=== PATIENT | female | born 1960 | race Caucasian/White ===

== ENCOUNTER 2017-02-06 10:24 | Inpatient (IN) ==
[2017-02-06 11:25] LABS: Basophils # 0.1 K/mcL (0.0-0.2); Eosinophils # 0.1 K/mcL (0.0-0.6); Eosinophils % 1.4 %; Hematocrit 40.4 % (35.3-44.9); Hemoglobin 13.6 g/dL (11.5-15.4); Immature Granulocytes % 0.4 % (0-4); Lymphocytes # 1.3 K/mcL (0.6-4.6); Lymphocytes % 27.1 %; Mean Corpuscular HGB Conc 33.7 g/dL (31.6-35.5); Mean Corpuscular Hemoglobin 28.1 pg (28.0-33.3); Mean Corpuscular Volume 83.5 fL (83.0-100.0); Mean Platelet Volume 11.4 fL (9.4-12.4); Monocytes # 0.3 K/mcL (0.0-1.3); Monocytes % 6.3 %; Neutrophils # 3.1 K/mcL (1.6-8.9); Platelet Count 152 K/mcL (140-400); Red Blood Count 4.84 M/mcL (3.82-4.97); Red Cell Distribution Width 14.1 % (11.5-14.5); Segmented Neutrophils % 63.8 %
[2017-02-06 11:30] LABS: INR 1.2; Prothrombin Time 13.3 Seconds (9.4-12.1)
[2017-02-06 11:32] LABS: Activated Partial Thrombo Time 32.6 Seconds (26.0-36.0)
[2017-02-06 11:36] LABS: BUN/Creatinine Ratio 20 (6-26); Blood Urea Nitrogen 20 mg/dL (7-20); Carbon Dioxide 22 mEq/L (19-29); Chloride 109 mEq/L (98-109); Glucose 95 mg/dL (70-99); Osmolality,Calculated 290 (280-300); Potassium 3.6 mEq/L (3.5-4.5); Sodium 139 mEq/L (136-145); eGFR For African Americans > 60 (> 60); eGFR For Non-African Americans 58 (> 60)
--- NOTE | 2017-02-06 12:48 | Emergency Department Note ---
Disposition Clinical Impression: CVA (cerebral vascular accident) Qualifiers: CVA mechanism: unspecified Qualified Code(s): I63.9 - Cerebral infarction, unspecified Disposition: Admitted As Inpatient Condition: Good Neuro HPI - General Chief Complaint: ED Headache Stated Complaint: Hypertension/headache/numbness to left hand Time Seen by Provider: 02/06/17 10:31 Source: patient, family Limitations: no limitations Nursing Notes Reviewed: Yes Vital Signs Reviewed: Yes - History of Present Illness HPI Narrative: He is a 56-year-old female with a history of smoking and hypertension is here for neurologic symptoms. 2 days ago she was seen at a local ER was diagnosed with hypertensive encephalopathy and discharged home. At that time she was having issues with gait disturbances. She is also having issues with coordination of her left hand. She was placed on aspirin and lisinopril and discharged home to follow-up with neurology. She will call the neurology office today and they recommended coming back to the ER for reevaluation. Overall the patient states she feels better she still having some coordination issues with her left arm but states her balance and gait is back to baseline. Her did notice a small deficit left sided facial droop. Symptom Onset Unknown: Yes (greater than 48 hours ago) Timing confirmed by: spouse Location: left face, left arm Symptoms Improving: Yes Improves with: time On Anticoagulants: No Associated symptoms: Reports: denies other symptoms - Related Data Home Medications: Previous Rx's Medication Instructions Recorded Lisinopril [Zestril] 20 mg PO DAILY #30 tablet 02/04/17 Sulfamethoxazole/Trimeth DS 1 each PO BID #14 tablet 02/04/17 [Bactrim DS] Allergies/Adverse Reactions: Allergies Allergy/AdvReac Type Severity Reaction Status Date / Time No Known Allergies Allergy Verified 02/04/17 14:04 All systems ED: reviewed and negative except as stated. 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 - Social History Smoking Status: Current every day smoker Smokeless Tobacco Status: No Alcohol use: Reports: occasionally Drug use: Reports: none Physical Exam - General Limitations: no limitations General appearance: alert, in no apparent distress - Head Head exam: atraumatic, normocephalic, normal inspection - Eye Eye exam: Present: normal appearance, PERRL, EOMI - Neck Neck exam: Present: normal inspection, full ROM, trachea midline - Chest Chest inspection: Present: normal inspection, symmetric chest wall rise - Respiratory Respiratory exam: Present: normal lung sounds bilaterally - Cardiovascular Cardiovascular exam: Present: regular rate, normal rhythm, normal heart sounds - Abdominal Exam Abdominal exam: Present: soft, Non-Tender. Absent: tenderness, distention, guarding, rebound, rigidity - Expanded Lower Extremity Exam Gait: observed and normal - Back Exam Back exam: Present: normal inspection, full ROM. Absent: tenderness - Neurological Exam Neurological exam: Present: alert, oriented X3 - Expanded Neurological Exam Patient oriented to: Present: person, place, time Cranial nerves: facial palsy (VII): Abnormal Left (Mild) Cerebellar function: finger to nose: Abnormal Left (Mild) Cerebellar function: normal gait Motor strength - LUE: 5/5 Motor strength - RUE: 5/5 Motor strength - LLE: 5/5 Motor strength - RLE: 5/5 Course - Consultations Consultation #1: Dr. Mullen will see in hospital Time: 13:29 Vital Signs Temperature 97.7 F 02/06/17 10:26 Pulse Rate 81 02/06/17 10:26 Respiratory Rate 18 02/06/17 10:26 Blood Pressure 200/83 02/06/17 10:26 O2 Sat by Pulse Oximetry 97 02/06/17 10:26 Temperature 97.7 F 02/06/17 10:26 Pulse Rate 81 02/06/17 10:26 Respiratory Rate 18 02/06/17 10:26 Blood Pressure 200/83 02/06/17 10:26 O2 Sat by Pulse Oximetry 97 02/06/17 10:26 Oxygen Delivery Oxygen Delivery Room Air Neuro Symptoms/Deficit - Differential Diagnosis Likely: cerebrovascular accident, subarachnoid hemorrhage, transient cerebral ischemia, multiple sclerosis, peripheral neuropathy, convulsions - Medical Records Medical records reviewed: Yes I reviewed the patient's medical records. - Lab Data Result diagrams: 02/06/17 11:15 02/06/17 11:15 Lab Results 02/06/17 02/06/17 02/06/17 Range/Units 11:15 11:15 11:15 WBC 4.9 (4.3-11.1) K/mcL RBC 4.84 (3.82-4.97) M/mcL Hgb 13.6 (11.5-15.4) g/dL Hct 40.4 (35.3-44.9) % MCV 83.5 (83.0-100.0) fL MCH 28.1 (28.0-33.3) pg MCHC 33.7 (31.6-35.5) g/dL RDW 14.1 (11.5-14.5) % Plt Count 152 (140-400) K/mcL MPV 11.4 (9.4-12.4) fL Immature Gran % 0.4 (0-4) % Seg Neutrophils % 63.8 % Lymphocytes % 27.1 % Monocytes % 6.3 % Eosinophils % 1.4 % Basophils % 1.0 % Neutrophils # 3.1 (1.6-8.9) K/mcL Lymphocytes # 1.3 (0.6-4.6) K/mcL Monocytes # 0.3 (0.0-1.3) K/mcL Eosinophils # 0.1 (0.0-0.6) K/mcL Basophils # 0.1 (0.0-0.2) K/mcL PT 13.3 H (9.4-12.1) Seconds INR 1.2 APTT 32.6 (26.0-36.0) Seconds Sodium 139 (136-145) mEq/L Potassium 3.6 (3.5-4.5) mEq/L Chloride 109 (98-109) mEq/L Carbon Dioxide 22 (19-29) mEq/L BUN 20 (7-20) mg/dL Creatinine 0.98 (0.57-1.11) mg/dL Est GFR ( Amer) > 60 (> 60) Est GFR (Non-Af Amer) 58 L (> 60) BUN/Creatinine Ratio 20 (6-26) Glucose 95 (70-99) mg/dL Calculated Osmolality 290 (280-300) Calcium 9.0 (8.6-10.8) mg/dL Troponin I (0-0.03) ng/mL 02/06/17 Range/Units 11:15 WBC (4.3-11.1) K/mcL RBC (3.82-4.97) M/mcL Hgb (11.5-15.4) g/dL Hct (35.3-44.9) % MCV (83.0-100.0) fL MCH (28.0-33.3) pg MCHC (31.6-35.5) g/dL RDW (11.5-14.5) % Plt Count (140-400) K/mcL MPV (9.4-12.4) fL Immature Gran % (0-4) % Seg Neutrophils % % Lymphocytes % % Monocytes % % Eosinophils % % Basophils % % Neutrophils # (1.6-8.9) K/mcL Lymphocytes # (0.6-4.6) K/mcL Monocytes # (0.0-1.3) K/mcL Eosinophils # (0.0-0.6) K/mcL Basophils # (0.0-0.2) K/mcL PT (9.4-12.1) Seconds INR APTT (26.0-36.0) Seconds Sodium (136-145) mEq/L Potassium (3.5-4.5) mEq/L Chloride (98-109) mEq/L Carbon Dioxide (19-29) mEq/L BUN (7-20) mg/dL Creatinine (0.57-1.11) mg/dL Est GFR ( Amer) (> 60) Est GFR (Non-Af Amer) (> 60) BUN/Creatinine Ratio (6-26) Glucose (70-99) mg/dL Calculated Osmolality (280-300) Calcium (8.6-10.8) mg/dL Troponin I 0.03 (0-0.03) ng/mL - Radiology Data Radiology results reviewed: Yes I reviewed the patient's radiology results. - EKG Data EKG attestation: Yes I reviewed and interpreted this EKG. EKG shows normal: sinus rhythm Rate: normal [place]/QRS: normal Interpretation: nonspecific ST-T wave changes TPA Checklist - Eligibilty for IV tPA 1. LKW equal to or less than 4.5 hours be before treatment: No - LKW: 3-4.5 hrs Add. Contraindications Patient/family understanding: The patient/family members have been counseled and understood the risk, benefit , and alternatives of treatment. symptom onset greater than 48 hours and improving Critical Care Time Critical Care Time: Yes Total Critical Care Time: 35 Attestation: Critical care performed: Time is exclusive of separately billable procedures. Time includes: direct patient care, patient reassessment, coordination of patient care, interpretation of data (laboratory data, radiology data, and respiratory data), review of patient's medical records, medical consultation and documentation of patient care. Procedures included in critical care time: Procedures excluded from critical care time:
[2017-02-06] MEDS ORDERED: Aspirin 81 MG TAB.CHEW PO ONE (13:29)
--- NOTE | 2017-02-06 14:21 | Internal Med History&Physical ---
Date of Encounter: 02/06/17 Time of Encounter: 14:14 Assessment and Plan (1) Acute CVA (cerebrovascular accident) Current visit: Yes Status: Acute Acute right CVA affecting the right basal ganglia. Patient has left-sided weakness motor power 4/5. Onset of symptoms was probably Monday 2 days ago. She is out the window. Start aspirin and Statin. NIH stroke scale is 2. Follow NIH stroke scale every 4 hours. Patient systolic blood pressure is in the 200. Hold blood pressure medicine and allow for permissive hypertension. Check echocardiogram carotid doppler. she is in normal sinus rhythm but will keep on telemetry. Physical therapy, high school social studies teacher, occupational therapy, and speech therapy to evaluate the patient. Will give heparin and famotidine for DVT and peptic ulcer disease prophylaxis. I have counseled on smoke cessation. She is full code. Inpatient admission (2) Recent urinary tract infection Current visit: Yes Status: Acute Patient had recent questionable urinary tract infection and was treated with 3 days of Bactrim starting on February 04. Urine culture performed then shows no broth. She is afebrile without leukocytosis. She already completed 3 days of antibiotics so I will discontinue it for now and recheck urine analysis Internal Medicine - H&P: HPI Chief complaint: left arm weakness History of present illness: Ms. Chambers is a 56 year old right-handed female with history of peripheral vascular disease, COPD not on home oxygen, a chronic smoker who was recently diagnosed hypertension when she presented to the emergency room 2 days ago to an outside facility with complains of gait unsteadiness and she was discharged home on lisinopril 20 mg daily. She presented emergency room today for further evaluation. Since Monday patient notice slight weakness in the left upper extremity where she was dropping things from her left hand. She has also noticed some tingling sensation in the left hand and leg. She denied any speech slipperiness facial assymmetry. She remains with severe hypertension. MRI performed at the emergency room showed right acute basal ganglia infarct. Past Med Surg Social Fam HX - Past Medical History Medical history: COPD, hypertension, kidney stones Psychiatric history: no psych history - Social History Smoking Status: Current every day smoker Smokeless Tobacco Status: No Alcohol use: occasionally Drug use: none Internal Medicine - H&P: Meds Lisinopril [Zestril] 20 mg PO DAILY #30 tablet 02/04/17 [Rx] Sulfamethoxazole/Trimeth DS [Bactrim DS] 1 each PO BID #14 tablet 02/04/17 [Rx] Aspirin [Lo-Dose Aspirin EC] 81 mg PO DAILY 02/06/17 [History] Allergies No Known Allergies Allergy (Verified 02/04/17 14:04) All Systems PM: A 10-system review of systems was performed and is negative for pertinent findings except as documented above in the HPI. Review of systems: 10 point review systems is negative except for HPI - Constitutional Vitals: Temp Pulse Resp BP Pulse Ox 97.7 F 81 18 200/83 97 02/06/17 10:26 02/06/17 10:26 02/06/17 10:26 02/06/17 10:26 02/06/17 10:26 Exam: Gen.: patient is alert oriented times 3 kn and distress. Cardiac: normal S1 S2 no additional sounds remembers chest: clear to auscultation abdomen: soft nontender nondistended lower extremity lax calf muscles neuro: left upper extremity weakness 4/5 left lower extremity weakness 4/5 Internal Med - H&P Results - Labs CBC & Chem 7: 02/06/17 11:15 02/06/17 11:15
--- NOTE | 2017-02-06 15:45 | Electrocardiograph Report ---
[place] [id number] Test Date: 2017-02-06 Pat Name: An Chambers Department: 102 Room: 2NE27 Gender: F Wireless Sales Associate: Ida : 1960 Requested By: Sebastian Escobedo Order Number: [id number] Reading MD: Dianne Loera Measurements Intervals [place] Rate: 66 P: 24 MA: 158 QRS: 88 QRSD: 80 T: 78 QT: 407 QTc: 420 Interpretive Statements SINUS RHYTHM NONSPECIFIC ST ABNORMALITIES Electronically Signed On 02-06-2017 15:43:15 EDT by Dianne Loera
[2017-02-06 16:40] LABS: Bilirubin,Urine Negative (Negative); Blood,Urine Negative (Negative); Clarity,Urine Clear (Clear); Color,Urine Yellow (Yellow); Glucose,Urine (UA) Normal (Normal); Ketones,Urine Negative (Negative); Leukocyte Esterase,Urine Moderate (Negative); Nitrite,Urine Negative (Negative); Protein,Urine Negative (Neg-Trace); Urobilinogen,Urine Normal (Normal)
[2017-02-06 16:44] LABS: Bacteria,Urine Few per hpf (None-Few); Hyaline Casts,Urine None Seen per lpf (None-Few); RBC,Urine 0-3 per hpf (0-3); Squamous Epithelial Cell,Urine Many per lpf (None-Few)
[2017-02-06] MEDS: Nicotine 21 MG PATCH.TD24 TD SCH (16:44)
[2017-02-06] MEDS: *HR* Heparin 5,000 UNIT/ML VIAL SQ SCH (16:45)
--- NOTE | 2017-02-06 17:11 | Neurology - Consult Note ---
Date of Encounter: 02/06/17 Time of Encounter: 17:03 Assessment and Plan (1) CVA (cerebral vascular accident) Current Visit: Yes Status: Acute Likely secondary to small vessel lacunar infarct secondary to HTN/hypertensive emergency. Will do stroke work up including echocardiography and carotid artery duplex study. Continue her on Aspirin 325mg daily for secondary stroke prevention. Continue Statin therapy in the from of atorvastatin. PT/OT evaluation. Qualifiers: CVA mechanism: occlusion Precerebral and cerebral artery: unspecified cerebral artery Qualified Code(s): I63.50 - Cerebral infarction due to unspecified occlusion or stenosis of unspecified cerebral artery History of Present Illness Chief complaint: left sided weakness, and balance problems HPI: Ms. Chambers is a 56 year old female with PMH significant for hypertension, COPD, bronchitis who developed acute onset of balance difficulty and left sided weakness about two days ago. She developed acute onset of balance difficulty and left sided weakness Went to ER at outside hospital and was found to have elevated BP at 200/102. Was given lisinopril and Aspirin and send home. Left sided weakness persisted and she went to ER here at [place]. MRI of brain showed: MR/MR head/brain wo con IMPRESSION: Acute infarction in the right basal ganglia. Question of a tiny subacute infarction in the high convexity posteromedial left frontal lobe. Scattered old infarctions as described above, progressed since October 01, 2008. 1 cm partially calcified meningioma along the anteromedial right frontal convexity, mildly increased in size since October 01, 2008 when it measured 7.4 mm. No evidence of edema in the adjacent brain parenchyma. Mild parenchymal volume loss. Mild chronic microvascular disease. I reviewed the images personally and the reported questionable subacute infarction in the high connexity posteromedial left frontal lobe does not associate with ADC map abnormality. Patient is doing better now. Still has slight left sided paresis but lot improved. Past Med Surg Social Fam HX - Past Medical History Medical history: COPD, hypertension, kidney stones Psychiatric history: no psych history - Social History Smoking Status: Current every day smoker Smokeless Tobacco Status: No Alcohol use: occasionally Drug use: none Medications and Allergies Lisinopril [Zestril] 20 mg PO DAILY #30 tablet 02/04/17 [Rx] Sulfamethoxazole/Trimeth DS [Bactrim DS] 1 each PO BID #14 tablet 02/04/17 [Rx] Aspirin [Lo-Dose Aspirin EC] 81 mg PO DAILY 02/06/17 [History] Allergies No Known Allergies Allergy (Verified 02/04/17 14:04) All Systems: A 10-system review of systems was performed and is negative for pertinent findings except as documented above in the HPI. Physical Examination - Vital Signs Vital Signs: Initial Vital Signs Temp Pulse Resp BP Pulse Ox 97.7 F 81 18 200/83 97 02/06/17 10:02/06/17 10:02/06/17 10:02/06/17 10:02/06/17 10:26 - Constitutional General appearance: comfortable - Neurologic Sensorimotor examination: other (slight reduced sensation to the left hand) Detailed motor examination: other (Mild left sided weakness noted) Motor examination - right side: 5/5: deltoids, biceps, triceps, wrist flexion, wrist extension, manager technical sales, hip flexors, tibialis Anterior, quadriceps, toe extension (EHL), plantarflexion Motor examination - left side: 4/5: deltoids, biceps, triceps, wrist flexion, wrist extension, hip flexors, manager technical sales, quadriceps, tibialis Anterior, toe extension (EHL), plantarflexion Detailed sensory examination: other (Left sided paresthesia noted) Posture: other (None) Reflex and gait examination: other Reflexes: Biceps: 2+, Triceps: 2+, Brachioradialis: 2+, Patella: 2+, Achilles: 2 + Mental Status Examination: awake, alert, oriented to person, oriented to place, oriented to time, follows commands appropriately, answers questions appropriately, no agnosia, no aphasia, no aproxia Cranial nerve examination: PERRL, EOMI, visual arreaga intact, corneal reflexes brisk symmetrically, sensory to face intact, mastication intact, no facial asymmetry is present, no dysarthria, hearing is intact symmetrically, soft palate elevates bilaterally upon phonation, gag reflex intact, flexes SCM and trapezius muscles symmetrically with full power, tongue protrudes midline, no atrophy or facial fasiculations present Results - Laboratory Findings CBC and BMP: 02/06/17 11:15 02/06/17 11:15 Abnormal lab findings: Abnormal lab results PT 13.3 Seconds (9.4-12.1) H 02/06/17 11:15 Est GFR (Non-Af Amer) 58 (> 60) L 02/06/17 11:15 Ur Leukocyte Esterase Moderate (Negative) H 02/06/17 16:20 Urine Microscopic WBC 5-15 per hpf (0-3) H 02/06/17 16:20 Ur Squamous Epith Cells Many per lpf (None-Few) H 02/06/17 16:20 Consult Discharge Plan - Plan
[2017-02-07 03:59] LABS: Basophils # 0.1 K/mcL (0.0-0.2); Basophils % 1.3 %; Eosinophils # 0.1 K/mcL (0.0-0.6); Hematocrit 36.9 % (35.3-44.9); Hemoglobin 12.1 g/dL (11.5-15.4); Immature Granulocytes % 0.3 % (0-4); Lymphocytes # 1.6 K/mcL (0.6-4.6); Lymphocytes % 40.1 %; Mean Corpuscular HGB Conc 32.8 g/dL (31.6-35.5); Mean Corpuscular Hemoglobin 27.3 pg (28.0-33.3); Mean Corpuscular Volume 83.3 fL (83.0-100.0); Mean Platelet Volume 11.3 fL (9.4-12.4); Monocytes # 0.3 K/mcL (0.0-1.3); Monocytes % 8.6 %; Neutrophils # 1.8 K/mcL (1.6-8.9); Platelet Count 149 K/mcL (140-400); Red Blood Count 4.43 M/mcL (3.82-4.97); Red Cell Distribution Width 14.1 % (11.5-14.5); Segmented Neutrophils % 46.7 %
[2017-02-07] MEDS: *HR* Heparin 5,000 UNIT/ML VIAL SQ SCH (06:34)
[2017-02-07 07:17] LABS: BUN/Creatinine Ratio 22 (6-26); Blood Urea Nitrogen 22 mg/dL (7-20); Calcium 8.6 mg/dL (8.6-10.8); Carbon Dioxide 21 mEq/L (19-29); Chloride 110 mEq/L (98-109); Glucose 99 mg/dL (70-99); Magnesium 1.7 mg/dL (1.6-2.6); Osmolality,Calculated 291 (280-300); Potassium 3.8 mEq/L (3.5-4.5); Sodium 139 mEq/L (136-145); eGFR For African Americans > 60 (> 60); eGFR For Non-African Americans 58 (> 60)
[2017-02-07] MEDS: Nicotine 21 MG PATCH.TD24 TD SCH (08:28)
--- NOTE | 2017-02-07 08:45 | Neurology Progress Note ---
Date of Encounter: 02/07/17 Time of Encounter: 08:10 Assessment and Plan (1) CVA (cerebral vascular accident) Current Visit: Yes Status: Acute Acute right basal ganglia infarct. Continue ASA 325mg daily for secondary stroke prevention. Continue Atorvastatin. Physical therapy recommendation for outpatient rehabilitation. Awaiting final results of carotid duplex and echocardiogram. Smoking cessation recommended. Followup with primary care provider for monitoring and control of blood pressure. Qualifiers: CVA mechanism: occlusion Precerebral and cerebral artery: unspecified cerebral artery Qualified Code(s): I63.50 - Cerebral infarction due to unspecified occlusion or stenosis of unspecified cerebral artery Subjective Principal diagnosis: acute right basal infarct Interval history: The patient was seen and examined. She is resting comfortably in bed. The patient is undergoing workup for stroke. Thus far preliminary read of the cartoid duplex ultrasound is demonstrating no abnormalities on the right, but there are findings of left proximal, mid, and distal ICA occlusion. No official read is back. Still awaiting results of echocardiogram. 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 She notes that her parasthesias and decreased sensation in her left hand have resolved. She was seen by PT/OT/ and speech therapy. She was recommended to have outpatient rehabilitation. Objective - Constitutional Vitals: Temp Pulse Resp BP Pulse Ox 98.3 F 78 15 144/83 96 02/07/17 08:29 02/07/17 08:29 02/07/17 08:29 02/07/17 08:29 02/07/17 08:29 General appearance: Present: A&O X 3 - Neurological Exam Motor Examination: Present: other (Mild left sided weakness noted) Motor examination - right side: 5/5: deltoids, biceps, triceps, wrist flexion, wrist extension, utility systems repairer operator, hip flexors, tibialis Anterior, quadriceps, toe extension (EHL), plantarflexion Motor examination - left side: 4/5: biceps, wrist flexion, wrist extension, hip flexors, utility systems repairer operator, quadriceps, tibialis Anterior, toe extension (EHL), plantarflexion, 5/5: deltoids, triceps Sensation intact: Present: intact Reflexes: Biceps: 2+, Triceps: 2+, Brachioradialis: 2+, Patella: 2+, Achilles: 2 + Mental Status Examination: Present: awake, alert, oriented to person, oriented to place, oriented to time, follows commands appropriately, answers questions appropriately, no agnosia, no aphasia, no aproxia Cranial nerve examination: Present: PERRL, EOMI, visual arreaga intact, corneal reflexes brisk symmetrically, sensory to face intact, mastication intact, no facial asymmetry is present, no dysarthria, hearing is intact symmetrically, soft palate elevates bilaterally upon phonation, flexes SCM and trapezius muscles symmetrically with full power, tongue protrudes midline, no atrophy or facial fasiculations present - VTE Documentation of Mechanical Device: Intermittent pneumatic compression device Results - Laboratory Findings CBC and BMP: 02/07/17 03:28 02/07/17 05:48 Abnormal lab findings: Abnormal lab results WBC 3.9 K/mcL (4.3-11.1) L 02/07/17 03:28 MCH 27.3 pg (28.0-33.3) L 02/07/17 03:28 PT 13.3 Seconds (9.4-12.1) H 02/06/17 11:15 Chloride 110 mEq/L (98-109) H 02/07/17 05:48 BUN 22 mg/dL (7-20) H 02/07/17 05:48 Est GFR (Non-Af Amer) 58 (> 60) L 02/07/17 05:48 Ur Leukocyte Esterase Moderate (Negative) H 02/06/17 16:20 Urine Microscopic WBC 5-15 per hpf (0-3) H 02/06/17 16:20 Ur Squamous Epith Cells Many per lpf (None-Few) H 02/06/17 16:20 Consult Discharge Plan - Plan Referrals: NO,PCP [Primary Care Provider] -
[2017-02-07] MEDS ORDERED: Famotidine 20 MG TABLET PO SCH (09:00)
[2017-02-07] MEDS ORDERED: Aspirin 81 MG TAB.CHEW PO SCH (09:00)
[2017-02-07 09:06] LABS: Cholesterol 211 mg/dL (< 200); HDL Cholesterol 35 mg/dL (40-59); LDL Cholesterol,Calculated 154 mg/dL (0-99); Triglycerides 110 mg/dL (< 150)
--- NOTE | 2017-02-07 09:10 | ECHO - Doppler Report ---
Echo with Saline Contrast Name: An Chambers Date of Study: 02/06/2017 Date: 1960 Ht: 63.0 in Medical Record#: [id number] Age: 56 Wt: 113.0 lb Gender: Female BSA: 1.52 Order #: [id number] Location: [facility] Room #: 2NE27 Reading Physician: Dianne Loera DO Nurse Practical: Alicia Damian Ordering Physician: Torin Singh MD Primary Physician: None Indications: CVA Impressions: LVEF 60%. Normal left ventricular size and systolic function. There is evidence of mild diastolic dysfunction of the left ventricle. Normal right ventricular size and function. No significant valvular dysfunction. No pulmonary hypertension. No PFO with saline contrast. Left Ventricular Wall Motion: Rest Echo Findings All wall segments showed normal motion. Findings: Study Quality * Technically adequate exam. ECG Findings * Normal sinus rhythm. Left Ventricle * LVEF 60%. * Normal LV chamber size, wall thickness and function. * Mild left ventricular diastolic dysfunction. Left Atrium * Normal left atrial size. Aortic Valve * No aortic regurgitation. * Trileaflet aortic valve. * Normal aortic valve structure. * No aortic stenosis. Mitral Valve * Normal mitral valve structure. * No mitral regurgitation. * No mitral stenosis. Tricuspid Valve * Tricuspid valve not well visualized. * No tricuspid regurgitation. * Estimated RA pressure is 3 mmHg. Pulmonic Valve * Pulmonic valve is not well visualized. * No pulmonic stenosis. * No pulmonic regurgitation. Pulmonary Artery * Pulmonary artery not well visualized. Right Ventricle * Normal right ventricular structure and function. Right Atrium * Normal right atrial size. Interatrial Septum * No evidence of PFO with agitated saline contrast. * No evidence of PFO by color Doppler. Pericardium * There is no pericardial effusion present. Aorta * Not well visualized. IVC * Normal IVC dimensions and inspiratory collapse. History Hypertension History of Smoking Years 40 Packs 1 Measurements: BP: 155/ 84 2D Normal Values RVIDd: 2.30 cm <2.7 cm IVSd: 1.00 cm 0.6 - 1.0 cm LVIDd: 4.10 cm 3.7 - 5.6 cm LVPWd: 1.00 cm 0.6 - 1.1 cm LVIDs: 3.00 cm 1.5 - 3.6 cm AO: 2.20 cm < 4.0 cm LA: 2.40 cm 2.0 - 4.0cm %FS: 26.80 cm >25 % LA volume: 29 Mitral Valve Peak E:.75 m/sec Peak A:.99 m/sec E/A Ratio:0.8 Peak E' Lat Alexi:7.31 cm/s Peak E' Med Alexi:5.36 cm/s E/E' Lat Ratio:10.3 E/E' Med Ratio:14 Updated by Dianne Loera on 02/07/2017 9:03:43 AM electronically signed on 02/07/2017 9:04:15 AM with status of Final Wall Motion [place]: 1=Normal, 2=Hypokinesis, 3=Akinesis, 4=Dyskinesis, 5=Aneurysmal, 6=Hyperkinetic, X=Not Visualized (Blank)=Missing
--- NOTE | 2017-02-07 10:26 | Discharge Summary ---
<DawitLiane dodge - Last Filed: 02/07/17 16:12> Date of Encounter: 02/07/17 Time of Encounter: 08:45 - Discharge Diagnosis (1) CVA (cerebral vascular accident) Priority: Primary Status: Acute Qualifiers: CVA mechanism: unspecified Qualified Code(s): I63.9 - Cerebral infarction, unspecified (2) Hypertension Priority: Primary Status: Chronic Qualifiers: Hypertension type: essential hypertension Qualified Code(s): I10 - Essential (primary) hypertension (3) Hyperlipidemia Priority: Secondary Status: Chronic Qualifiers: Hyperlipidemia type: unspecified Qualified Code(s): E78.5 - Hyperlipidemia , unspecified (4) Tobacco use Priority: Secondary Status: Chronic - Discharge Medications Prescriptions: Aspirin 325 mg PO DAILY #30 tablet Atorvastatin [Lipitor] 20 mg PO HS #60 tablet Home Medications: Lisinopril [Zestril] 20 mg PO DAILY #30 tablet 02/04/17 [Rx] Aspirin 325 mg PO DAILY #30 tablet 02/07/17 [Rx] Atorvastatin [Lipitor] 20 mg PO HS #60 tablet 02/07/17 [Rx] Allergies/Adverse Reactions: Allergies No Known Allergies Allergy (Verified 02/04/17 14:04) Procedures/tests Complete & Pending: Procedures Performed prior 72 hours Category Date Time Status EV carotid duplex imaging BI Routine Y 02/06/17 14:21 Completed EV echocardiogram Routine Y 02/06/17 14:21 Completed Date of admission: 02/06/17 14:11 Primary care physician: PCP NO Consults: [facility] Discharging clinician: Liane Pastor Anticipated date of discharge: 02/07/17 - Patient Status Disposition: Home, Self-Care Condition: Good Functional capacity at discharge: independent ambulation Overall status at discharge: patient is progressing back to baseline - Discharge Instructions Instructions: Aspirin (By mouth), Atorvastatin (By mouth), Ischemic Stroke (DC) , Ischemic Stroke (GEN), Chronic Hypertension (DC), Cigarette Smoking and Your Health, [employer] (GEN) Follow Up With: Marco Pantoja MD [Partnered Physician] - 02/09/17 1:30 pm Forms: ED Satisfaction Letter, Work/School Release Additional Instructions: Please take full dose aspirin and prescribed Lipitor to decrease your chance to develop another stroke. Please continue home blood pressure medication but also follow up with your primary care provider within a week after discharge regarding your recent stroke. Please work on smoking cessation and ask your primary care provider if you need extra assistance. Work excuse until 02/09/17. - Diet and Activity Activity: as per physical therapy, increase activity as tolerated Diet: low fat, low cholesterol, low salt diet Hospital course: Ms. Chambers is a 56 year old female with PMH of HTN, peripheral vascular disease, and COPD. Patient had acute onset of left upper extremity weakness and gait unsteadiness two days prior to admission. Patient initially went to an outside facility ED where she was found to have elevated blood pressure at 200/ 100 but sent home with aspirin and lisinopril. Patient's symptoms persisted and eventually came [facility]. Patient was noted to have BP as high as 200 /83 in ED. Brain MRI found acute infarct in the right basal ganglia. Patient was started on aspirin and Lipitor. Neurology thinks it's likely small vessel lacunar infarct secondary to HTN/hypertensive emergency and recommends to continue aspirin and statin. Patient's neurological symptoms improves since admission and almost completely resolved on 02/07. Echo on 02/06 found LVEF 60% with mild diastolic dysfunction but no significant valvular dysfunction nor PFO with saline contrast. Bilateral carotid duplex exam found left PROX ICA 60-79% stenosis, MID ICA 60-79% and DISTAL ICA 40-59% stenosis. Given it's different from the infarct side, further intervention is not urgently indicated at this time. PT/OT recommends outpatient rehab. Given patient remains hemodynamically stable and improves on her neurological symptoms, will discharge patient home with full dose aspirin and atorvastatin. Patient will need follow up with her PCP within a week regarding her recent stroke. - Time Spent with Patient Total time spent providing and/or coordinating discharge services: Greater than 30 minutes - Constitutional Vitals: Temp Pulse Resp BP Pulse Ox 98.3 F 78 15 144/83 96 02/07/17 09:00 02/07/17 09:00 02/07/17 09:00 02/07/17 09:00 02/07/17 09:00 General appearance: Present: cooperative, A&O X 3, no acute distress, answers questions appropriately - Head Head exam: Present: atraumatic, normocephalic - Eye Eye exam: Present: EOMI, PERRL, conjuntiva pink, sclera anicteric - Neck Neck exam general surgery: Present: supple, trachea midline. Absent: lymphadenopathy - Respiratory Respiratory exam: Present: CTAB. Absent: accessory muscle use, rales, rhonchi, wheezes - Cardiovascular Cardiovascular exam: Present: RRR, +S1, +S2. Absent: diastolic murmur, gallop, rubs, systolic murmur - GI/Abdominal GI/Abdominal exam: Present: normal bowel sounds, soft, no peritoneal signs. Absent: distended, tenderness - Extremities Exam Extremities exam: Present: warm, radial pulses palpable and symetrical. Absent : calf tenderness, cyanotic, pedal edema - Neurological Exam Neurological exam: Present: CN II-XII intact, oriented X3, no focal deficits, strengths equal and symetr throughout. Absent: pronater drift, facial droop, speech deficit - Skin Skin exam: Present: dry, intact, warm - VTE Documentation of Mechanical Device: Intermittent pneumatic compression device <Sonu Cantu - Last Filed: 02/07/17 16:39> Date of Encounter: 02/07/17 - Discharge Diagnosis (1) CVA (cerebral vascular accident) Priority: Primary Status: Acute Qualifiers: CVA mechanism: thrombosis Precerebral and cerebral artery: middle cerebral artery Laterality of affected vessel: right Qualified Code(s): I63.311 - Cerebral infarction due to thrombosis of right middle cerebral artery (2) Hypertension Priority: Primary Status: Chronic Qualifiers: Hypertension type: essential hypertension Qualified Code(s): I10 - Essential (primary) hypertension (3) Tobacco use Status: Chronic (4) Hyperlipidemia Status: Chronic Qualifiers: Hyperlipidemia type: unspecified Qualified Code(s): E78.5 - Hyperlipidemia , unspecified Procedures/tests Complete & Pending: Procedures Performed prior 72 hours Category Date Time Status EV carotid duplex imaging BI Routine Y 02/06/17 14:21 Completed EV echocardiogram Routine Y 02/06/17 14:21 Completed Date of admission: 02/06/17 14:11 Primary care physician: PCP NO Hospital course: Ms. Chambers is a 56 year old female - Time Spent with Patient Total time spent providing and/or coordinating discharge services: 38min - Constitutional Vitals: Temp Pulse Resp BP Pulse Ox 98.1 F 77 15 168/96 97 02/07/17 11:17 02/07/17 11:17 02/07/17 11:17 02/07/17 11:17 02/07/17 11:17 - Stroke Contraindication Not Initiating IV-Tpa: Not Indicated - Symptoms Rapidly Improving - Attending Attestation I examined this patient and my medical decision-making was reviewed with the Resident Physician on 02/07/17. I agree with the documented findings, disposition and treatment plan as described except to the extent set forth below. Ms. Chambers has been admitted for acute CVA. She is afebrile with stable vitals. She is ready for discharge. Symptoms are improving. Exam Alert Comfortable Heart reg No wheeze Plan D/C today.
[2017-02-07 11:22] VITALS: BP 168/96
--- NOTE | 2017-02-07 20:35 | Carotid Imaging Report ---
Carotid Duplex Patient Name:An Chambers Order Number:[id number] Procedure Date:02/06/2017 Date:1960ge:56 yrs Gender:Female Lt BP:155 / 84 mmHg Rt.BP:155 / 84 mmHgHeart Rate: Location:[facility] Room #: [id number] Cell Reliner:Alicia Damian Referring MD:Torin Singh MD pediatric care coordinator:None Reading MD:Riley Velez MD Primary Indications:CVA Risk Factors Yes/No Hypertension Yes Smoking Current Yes Hx of CVA Yes Impressions: The right carotid artery has minimal plaque throughout. The left internal carotid artery has a 60-79% stenosis. Recommendations: Risk factor reduction. Further evaluation recommended if clinically indicated. Follow-up carotid duplex in 1 year. After imaging the patient returned to their room. Findings Carotid Duplex: Right: There is nonstenotic plaque in the right proximal common carotid artery. There is nonstenotic plaque in the right mid common carotid artery. There is nonstenotic plaque in the right distal common carotid artery. There is nonstenotic plaque in the right bifurcation. Left: There is nonstenotic plaque in the left proximal common carotid artery. There is nonstenotic plaque in the left mid common carotid artery. There is nonstenotic plaque in the left distal common carotid artery. There is nonstenotic plaque in the left bifurcation. There is 60-79% stenosis in the left proximal internal carotid artery. There is 60-79% stenosis in the left mid internal carotid artery. There is 40-59% stenosis in the left distal internal carotid artery. Prior Study: No prior study available for comparison. Carotid Results Right PSV EDV Assessment Proximal CCA 66 15 Non Stenotic Plaque Mid CCA 67 17 Non Stenotic Plaque Distal CCA 74 16 Non Stenotic Plaque Bifurcation 57 15 Non Stenotic Plaque Proximal ICA 80 27 Normal Mid ICA 90 35 Normal Distal ICA 101 31 Normal ECA 133 13 Normal Vertebral Artery 74 33 Normal Left PSV EDV Assessment Proximal CCA 91 24 Non Stenotic Plaque Mid CCA 88 23 Non Stenotic Plaque Distal CCA 94 23 Non Stenotic Plaque Bifurcation 65 17 Non Stenotic Plaque Proximal ICA 158 51 60-79% stenosis Mid ICA 160 42 60-79% stenosis Distal ICA 141 37 40-59% stenosis ECA 137 16 Normal Vertebral Artery 49 8 Normal Ratio's Right ICA/CCA Ratio: 1.51 ICA/CCA Values: 101/67 Left ICA/CCA Ratio: 1.82 ICA/CCA Values: 160/88 Updated by Riley Velez MD on 02/07/2017 8:30:23 PM electronically signed on 02/07/2017 8:30:57 PM with status of Final
== END 2017-02-07 16:47 | disposition home or self-care (01) | DRG 65 ==
LOC: EMEROO 10:24 → 2NENU 10:24
PROVIDERS: ADMIT Internal Medicine; ATTEND Internal Medicine

== ENCOUNTER 2018-03-03 14:52 | Observation (INO) ==
[2018-03-03] MEDS ORDERED: 0.9 % Sodium Chloride 1,000 ML IVC ONE (15:04)
--- NOTE | 2018-03-03 15:29 | Emergency Department Note ---
Disposition Clinical Impression: Syncope and collapse, Hx of carotid stenosis, History of CVA (cerebrovascular accident), Head injury with loss of consciousness Disposition: Admitted As Inpatient Condition: Fair Time of Disposition: 18:01 Syncope HPI - General Chief Complaint: ED Syncope Stated Complaint: Syncope / Fall Time Seen by Provider: 03/03/18 14:59 Source: patient, EMS Mode of arrival: EMS Limitations: no limitations Nursing Notes Reviewed: Yes Vital Signs Reviewed: Yes - History of Present Illness HPI Narrative: 57-year-old female, history of smoking, previous CVA, hypertension, hyperlipidemia, carotid stenosis, PAD, presents after an episode of syncope. Patient states that she felt lightheaded, saw "zigzags" in her vision, and then she had a episode where she collapsed baby for several seconds to minute this is witnessed by her son indication he says she hit her head on the ground possibly, the patient denies any headache or chest pain at this time. Denies any other increased her extremities. She was complain of some mild right abdominal pain that she rates a 3 out of 10, the patient's was responsive somewhat sleepy afterwards EMS brought her in this is Accu-Chek was over 100, she denies any recent fever, chills, productive cough, dysuria hematuria or flank pain. Her previous CVA left her with some left sided upper externally deficit, but she is able to walk she has no slurred speech or gait difficulties , and she has normal function with her ADLs at baseline Pt Subjective Complaint: loss of consciousness, collapsed Duration: second(s) Witnessed: no Context: at rest, standing up Injuries Sustained Associated with Event: head Current Symptoms: none History: none Treatments prior to arrival: none - Related Data Previous Rx's Medication Instructions Recorded Lisinopril [Zestril] 20 mg PO DAILY #30 tablet 02/04/17 Aspirin 325 mg PO DAILY #30 tablet 02/07/17 Atorvastatin [Lipitor] 20 mg PO HS #60 tablet 02/07/17 HYDROcodone/Acet 5/325 mg [[place] 1 tab PO Q6H PRN 2 Days #10 tab 11/11/17 5-325 mg] Ibuprofen [Motrin] 600 mg PO Q6HR PRN #22 tab 11/11/17 Methocarbamol [Robaxin] 500 mg PO Q8HR PRN #21 tablet 11/11/17 Azithromycin [Azithromycin 6-Tab 250 mg PO PER PKG DI #6 tab 01/12/18 Pack] predniSONE [Prednisone] 50 mg PO DAILY #5 tablet 01/12/18 Allergies Allergy/AdvReac Type Severity Reaction Status Date / Time No Known Allergies Allergy Verified 01/12/18 17:29 All systems ED: reviewed and negative except as stated. Review of Systems: As Per HPI Constitutional: Denies: fever, chills, weakness Eyes: Denies: eye pain ENT ED: Denies: ear pain Cardiovascular: Reports: as per HPI, syncope. Denies: chest pain, palpitations Respiratory: Denies: cough, dyspnea Gastrointestinal: Reports: as per HPI, abdominal pain, nausea Genitourinary: Denies: urgency Musculoskeletal: Denies: back pain Integumentary: Denies: rash, abrasion Neurological: Denies: headache, weakness, numbness Psychiatric: Denies: anxiety Endocrine: Denies: fatigue Past Medical History - Past Medical History Attestation: Yes The following information was validated with the patient. Source: patient Medical history: Reports: COPD, CVA, hyperlipidemia, hypertension, peripheral artery disease, other Psychiatric history: Reports: no psych history [employer] history: Reports: non-contributory - Social History Smoking Status: Current every day smoker Smokeless Tobacco Status: No Alcohol use: Reports: none Drug use: Reports: none Physical Exam - General Limitations: no limitations General appearance: alert - Head Head exam: atraumatic, normocephalic - Eye Eye exam: Present: normal appearance, PERRL - ENT ENT exam: normal exam, normal oropharynx - Neck Neck exam: Present: normal inspection, full ROM. Absent: tenderness - Chest Chest inspection: Present: normal inspection, symmetric chest wall rise - Respiratory Respiratory exam: Present: normal lung sounds bilaterally. Absent: respiratory distress - Cardiovascular Cardiovascular exam: Present: regular rate, normal rhythm - Abdominal Exam Abdominal exam: Present: soft, Non-Tender - Extremities Exam Extremities exam: Present: normal inspection - Expanded Upper Extremity Exam Shoulder exam: Present: normal inspection, full ROM - Expanded Lower Extremity Exam Hip/Pelvis exam: Present: normal inspection, full ROM Gait: observed and normal - Back Exam Back exam: Present: normal inspection, full ROM - Neurological Exam Neurological exam: Present: alert, oriented X3, CN II-XII intact, normal gait - Psychiatric Psychiatric exam: Present: normal affect Course Course Narrative: 57-year-old female multiple comorbidities and syncopal episode, no focal deficits on my exam however given that she is comorbidities with some EKG changes including T-wave inversions in lead V2 and some ST depressions in V4 through for through V6 we will get an ischemic workup, CT head and cervical spine, chest x-ray EKG d-dimer basic lab work and analysis reassess - Reevaluation(s) Reevaluation #1: Given patient high risk factors of syncope including recency previous CVA, carotid stenosis, PT, she did have elevated d-dimer CTA was negative for acute pulmonary embolism, also performed a bedside abdominal aortic management that showed measurements less than 2 cm in both planes patient was admitted to the hospital service and fair condition, for further syncopal workup. Vital Signs Temperature 98.7 F 03/03/18 14:55 Pulse Rate 65 03/03/18 14:55 Respiratory Rate 14 03/03/18 14:55 Blood Pressure 136/70 03/03/18 14:55 O2 Sat by Pulse Oximetry 100 03/03/18 14:55 Temperature 97.7 F 03/03/18 17:49 Pulse Rate 56 03/03/18 17:49 Respiratory Rate 16 03/03/18 17:49 Blood Pressure 159/94 03/03/18 17:49 O2 Sat by Pulse Oximetry 99 03/03/18 17:49 Oxygen Delivery Oxygen Delivery Room Air Syncope - Differential Diagnosis Likely: syncope due to orthostatic hypotension, complete atrioventricular block , intracerebral hemorrhage, pulmonary embolism, dehydration/metabolic disorder, trauma secondary to event - Medical Records Medical records reviewed: Yes I reviewed the patient's medical records. - Lab Data Lab results reviewed: Yes I reviewed the patient's lab results. Result diagrams: 03/03/18 15:32 03/03/18 15:32 Lab Results 03/03/18 03/03/18 03/03/18 Range/Units 15:32 15:32 15:32 WBC 6.3 (4.3-11.1) K/mcL RBC 4.51 (3.82-4.97) M/mcL Hgb 12.5 (11.5-15.4) g/dL Hct 38.0 (35.3-44.9) % MCV 84.3 (83.0-100.0) fL MCH 27.7 L (28.0-33.3) pg MCHC 32.9 (31.6-35.5) g/dL RDW 13.3 (11.5-14.5) % Plt Count 127 L (140-400) K/mcL MPV 10.5 (9.4-12.4) fL Immature Gran % 0.3 (0-4) % Seg Neutrophils % 71.3 % Lymphocytes % 19.0 % Monocytes % 5.7 % Eosinophils % 2.9 % Basophils % 0.8 % Neutrophils # 4.5 (1.6-8.9) K/mcL Lymphocytes # 1.2 (0.6-4.6) K/mcL Monocytes # 0.4 (0.0-1.3) K/mcL Eosinophils # 0.2 (0.0-0.6) K/mcL Basophils # 0.1 (0.0-0.2) K/mcL PT 12.9 H (9.4-12.1) Seconds INR 1.2 APTT 29.1 (26.0-36.0) Seconds D-Dimer (0-500) ng/mLFEU Sodium 139 (136-145) mEq/L Potassium 3.7 (3.5-5.1) mEq/L Chloride 110 H (98-107) mEq/L Carbon Dioxide 25 (23-29) mEq/L BUN 26 H (6-20) mg/dL Creatinine 1.01 (0.60-1.20) mg/dL Est GFR ( Amer) > 60 (> 60) Est GFR (Non-Af Amer) 56 L (> 60) BUN/Creatinine Ratio 26 (6-26) Glucose 99 (70-105) mg/dL Calculated Osmolality 293 (280-300) Calcium 8.5 L (8.6-10.3) mg/dL Total Bilirubin 0.5 (0.3-1.0) mg/dL AST 12 L (13-39) Units/L ALT 9 (7-52) Units/L Alkaline Phosphatase 68 (34-104) Units/L Troponin I (< 0.04) ng/mL Serum Total Protein 5.9 L (6.4-8.9) g/dL Albumin 3.6 (3.5-5.7) g/dL Globulin 2.3 L (2.4-3.5) g/dL Albumin/Globulin Ratio 1.6 (1.1-2.2) Lipase (11-82) Units/L Urine Color (Yellow) Urine Clarity (Clear) Urine pH (5.0-8.0) pH Units Ur Specific [place] (1.010-1.025) Urine Protein (Neg-Trace) mg/dL Urine Glucose (UA) (Normal) mg/dL Urine Ketones (Negative) mg/dL Urine Blood (Negative) Urine Nitrite (Negative) Urine Bilirubin (Negative) Urine Urobilinogen (Normal) mg/dL Ur Leukocyte Esterase (Negative) Urine Microscopic WBC (0-3) per hpf Ur Squamous Epith Cells (None-Few) per lpf Ur Transition Epith Cell (None-Few) per hpf Ur Renal Epithelial Cell (None-Few) per hpf Urine Bacteria (None-Few) per hpf Urine Mucus (Few) Urine Opiates Screen (Frcsls=755) ng/mL Ur Barbiturates Screen (Juduks=830) ng/mL Ur Phencyclidine Scrn (Cutoff=25) ng/mL Ur Amphetamines Screen (Trnytb=3029) ng/mL U Benzodiazepines Scrn (Deqobn=394) ng/mL Urine Cocaine Screen (Cutoff= 300) ng/mL U Marijuana (THC) Screen (Cutoff = 50) ng/mL Ethyl Alcohol (Less than 10) mg/dL 03/03/18 03/03/18 03/03/18 Range/Units 15:32 15:32 15:32 WBC (4.3-11.1) K/mcL RBC (3.82-4.97) M/mcL Hgb (11.5-15.4) g/dL Hct (35.3-44.9) % MCV (83.0-100.0) fL MCH (28.0-33.3) pg MCHC (31.6-35.5) g/dL RDW (11.5-14.5) % Plt Count (140-400) K/mcL MPV (9.4-12.4) fL Immature Gran % (0-4) % Seg Neutrophils % % Lymphocytes % % Monocytes % % Eosinophils % % Basophils % % Neutrophils # (1.6-8.9) K/mcL Lymphocytes # (0.6-4.6) K/mcL Monocytes # (0.0-1.3) K/mcL Eosinophils # (0.0-0.6) K/mcL Basophils # (0.0-0.2) K/mcL PT (9.4-12.1) Seconds INR APTT (26.0-36.0) Seconds D-Dimer 966 H (0-500) ng/mLFEU Sodium (136-145) mEq/L Potassium (3.5-5.1) mEq/L Chloride (98-107) mEq/L Carbon Dioxide (23-29) mEq/L BUN (6-20) mg/dL Creatinine (0.60-1.20) mg/dL Est GFR ( Amer) (> 60) Est GFR (Non-Af Amer) (> 60) BUN/Creatinine Ratio (6-26) Glucose (70-105) mg/dL Calculated Osmolality (280-300) Calcium (8.6-10.3) mg/dL Total Bilirubin (0.3-1.0) mg/dL AST (13-39) Units/L ALT (7-52) Units/L Alkaline Phosphatase (34-104) Units/L Troponin I < 0.03 (< 0.04) ng/mL Serum Total Protein (6.4-8.9) g/dL Albumin (3.5-5.7) g/dL Globulin (2.4-3.5) g/dL Albumin/Globulin Ratio (1.1-2.2) Lipase 16 (11-82) Units/L Urine Color (Yellow) Urine Clarity (Clear) Urine pH (5.0-8.0) pH Units Ur Specific [place] (1.010-1.025) Urine Protein (Neg-Trace) mg/dL Urine Glucose (UA) (Normal) mg/dL Urine Ketones (Negative) mg/dL Urine Blood (Negative) Urine Nitrite (Negative) Urine Bilirubin (Negative) Urine Urobilinogen (Normal) mg/dL Ur Leukocyte Esterase (Negative) Urine Microscopic WBC (0-3) per hpf Ur Squamous Epith Cells (None-Few) per lpf Ur Transition Epith Cell (None-Few) per hpf Ur Renal Epithelial Cell (None-Few) per hpf Urine Bacteria (None-Few) per hpf Urine Mucus (Few) Urine Opiates Screen (Cviwet=690) ng/mL Ur Barbiturates Screen (Ghmlvs=978) ng/mL Ur Phencyclidine Scrn (Cutoff=25) ng/mL Ur Amphetamines Screen (Kaawcl=7279) ng/mL U Benzodiazepines Scrn (Hgtzmu=996) ng/mL Urine Cocaine Screen (Cutoff= 300) ng/mL U Marijuana (THC) Screen (Cutoff = 50) ng/mL Ethyl Alcohol (Less than 10) mg/dL 03/03/18 03/03/18 03/03/18 Range/Units 15:49 15:53 16:07 WBC (4.3-11.1) K/mcL RBC (3.82-4.97) M/mcL Hgb (11.5-15.4) g/dL Hct (35.3-44.9) % MCV (83.0-100.0) fL MCH (28.0-33.3) pg MCHC (31.6-35.5) g/dL RDW (11.5-14.5) % Plt Count (140-400) K/mcL MPV (9.4-12.4) fL Immature Gran % (0-4) % Seg Neutrophils % % Lymphocytes % % Monocytes % % Eosinophils % % Basophils % % Neutrophils # (1.6-8.9) K/mcL Lymphocytes # (0.6-4.6) K/mcL Monocytes # (0.0-1.3) K/mcL Eosinophils # (0.0-0.6) K/mcL Basophils # (0.0-0.2) K/mcL PT (9.4-12.1) Seconds INR APTT (26.0-36.0) Seconds D-Dimer (0-500) ng/mLFEU Sodium (136-145) mEq/L Potassium (3.5-5.1) mEq/L Chloride (98-107) mEq/L Carbon Dioxide (23-29) mEq/L BUN (6-20) mg/dL Creatinine (0.60-1.20) mg/dL Est GFR ( Amer) (> 60) Est GFR (Non-Af Amer) (> 60) BUN/Creatinine Ratio (6-26) Glucose (70-105) mg/dL Calculated Osmolality (280-300) Calcium (8.6-10.3) mg/dL Total Bilirubin (0.3-1.0) mg/dL AST (13-39) Units/L ALT (7-52) Units/L Alkaline Phosphatase (34-104) Units/L Troponin I (< 0.04) ng/mL Serum Total Protein (6.4-8.9) g/dL Albumin (3.5-5.7) g/dL Globulin (2.4-3.5) g/dL Albumin/Globulin Ratio (1.1-2.2) Lipase (11-82) Units/L Urine Color Yellow (Yellow) Urine Clarity Clear (Clear) Urine pH 6.0 (5.0-8.0) pH Units Ur Specific [place] 1.015 (1.010-1.025) Urine Protein Negative (Neg-Trace) mg/dL Urine Glucose (UA) Normal (Normal) mg/dL Urine Ketones Negative (Negative) mg/dL Urine Blood Negative (Negative) Urine Nitrite Negative (Negative) Urine Bilirubin Negative (Negative) Urine Urobilinogen Normal (Normal) mg/dL Ur Leukocyte Esterase Trace H (Negative) Urine Microscopic WBC 3-5 H (0-3) per hpf Ur Squamous Epith Cells Few (None-Few) per lpf Ur Transition Epith Cell Few (None-Few) per hpf Ur Renal Epithelial Cell Few (None-Few) per hpf Urine Bacteria Few (None-Few) per hpf Urine Mucus Few (Few) Urine Opiates Screen Negative (Fcnjbn=615) ng/mL Ur Barbiturates Screen Negative (Vmunhm=715) ng/mL Ur Phencyclidine Scrn Negative (Cutoff=25) ng/mL Ur Amphetamines Screen Negative (Rllpmo=4024) ng/mL U Benzodiazepines Scrn Negative (Hldftw=448) ng/mL Urine Cocaine Screen Negative (Cutoff= 300) ng/mL U Marijuana (THC) Screen Negative (Cutoff = 50) ng/mL Ethyl Alcohol < 10 (Less than 10) mg/dL - Radiology Data Radiology results reviewed: Yes I reviewed the patient's radiology results. Chest X-Ray 03/03/18 15:05 IMPRESSION: Unchanged appearance of the chest without acute airspace disease identified. D/ / Wagner Jaimes / Wagner Jaimes Interpreting Provider: Wagner Jaimes Head CT 03/03/18 15:05 IMPRESSION: No acute intracranial abnormality. Stable CT of the head with remote bilateral basal ganglia infarcts, right frontal infarct, and a right cerebellar infarct. D/ / 03/03/2018 15:57:51 [facility] Bragg [facility] Inter[facility] Provider: Olga Bragg MD Cervical Spine CT 03/03/18 15:19 IMPRESSION: No acute abnormality of the cervical spine. D/ / Riley Galvez / Riley Galvez Interpreting Provider: Riley Galvez Chest CTA 03/03/18 16:05 IMPRESSION: No evidence of pulmonary embolism or acute pulmonary abnormality. Trace left pleural effusion. Emphysema. Calcified atheromatous plaque and coronary calcifications. D/ / Wagner Jaimes / Wagner Jaimes Interpreting Provider: Wagner aJimes - EKG Data EKG attestation: Yes I reviewed and interpreted this EKG. EKG shows normal: sinus rhythm Rate: normal Rhythm: NSR (69 bpm DE 175 QRS [address] depressions in V throat for through V6, early re-pole in V2 with T wave inversion in V2 this is seen on her previous EKG from December 2017) Critical Care Time Critical Care Time: Yes Total Critical Care Time: 35 Attestation: Critical care time 35 minutes managing patient's syncope. Attestation Statement - Attestation Attestation: Patient was seen with resident physician. I reviewed the history, physical, assessment and plan, and agree with the findings. I also personally evaluated this patient and had [id number] time with this patient. 57-year-old female presents emergency Department with syncopal episode. Patient states she was getting ready for work when she passed out hitting her head on some kind of dresser. Does not really remember the incident. Was not seen by who is in the room with the patient. Claims that her son told him that she was unconscious for approximately 2 minutes time. No seizure activity that was noted. Patient awoke spontaneously. She denies headache or neck pain. Denies other symptoms at this time. Patient did say that she had a recent carotid echo. She was told by the vascular surgeon she needed an evaluation by him to determine whether required surgical intervention. She has not yet had this appointment. Remainder review systems reviewed negative. Physical exam vital signs are stable. ENT is unremarkable there is no traumatic injury to the head. Neck and back are all nontender. Heart regular rhythm and rate, there is no carotid bruits. Lungs were clear. Abdomen soft nontender. Extremities unremarkable. Pelvis stable. Neurologically intact. Skin no rashes or signs of traumatic injury or abrasions. ED course we will do a full syncope workup EKG showed some potential ST segment depression which is seen on a prior EKG but still has some concern considering her symptoms. Workup was largely unremarkable. Head scan did not reveal acute abnormalities no evident neck. Also get a chest CT due to an elevated d-dimer. This too did not show any PEs or other significant abnormalities. Labs are largely unremarkable. Patient was stable and not syncopal while she was in the emergency department. Considering her recent history of carotid stenosis and todays episode of syncope with loss of consciousness lasting 2 minutes, we opted to admit the patient for further evaluation and treatment. Hospitalist service was notified and agreed to accept the patient. Agree with resident physician assessment and plan. Critical care time 35 minutes.
[2018-03-03 15:46] LABS: Basophils # 0.1 K/mcL (0.0-0.2); Basophils % 0.8 %; Eosinophils # 0.2 K/mcL (0.0-0.6); Eosinophils % 2.9 %; Hemoglobin 12.5 g/dL (11.5-15.4); Immature Granulocytes % 0.3 % (0-4); Lymphocytes # 1.2 K/mcL (0.6-4.6); Mean Corpuscular HGB Conc 32.9 g/dL (31.6-35.5); Mean Corpuscular Hemoglobin 27.7 pg (28.0-33.3); Mean Corpuscular Volume 84.3 fL (83.0-100.0); Mean Platelet Volume 10.5 fL (9.4-12.4); Monocytes # 0.4 K/mcL (0.0-1.3); Monocytes % 5.7 %; Neutrophils # 4.5 K/mcL (1.6-8.9); Platelet Count 127 K/mcL (140-400); Red Blood Count 4.51 M/mcL (3.82-4.97); Red Cell Distribution Width 13.3 % (11.5-14.5); Segmented Neutrophils % 71.3 %
[2018-03-03 15:54] LABS: INR 1.2; Prothrombin Time 12.9 Seconds (9.4-12.1)
[2018-03-03 15:57] LABS: Activated Partial Thrombo Time 29.1 Seconds (26.0-36.0)
[2018-03-03 16:01] LABS: Bilirubin,Urine Negative (Negative); Blood,Urine Negative (Negative); Clarity,Urine Clear (Clear); Color,Urine Yellow (Yellow); Glucose,Urine (UA) Normal (Normal); Ketones,Urine Negative (Negative); Leukocyte Esterase,Urine Trace (Negative); Nitrite,Urine Negative (Negative); Protein,Urine Negative (Neg-Trace); Specific Gravity,Urine 1.015 (1.010-1.025); Urobilinogen,Urine Normal (Normal)
[2018-03-03 16:03] LABS: Alanine Aminotransferase 9 Units/L (7-52); Albumin 3.6 g/dL (3.5-5.7); Albumin/Globulin Ratio 1.6 (1.1-2.2); Alkaline Phosphatase 68 Units/L (34-104); Aspartate Amino Transferase 12 Units/L (13-39); BUN/Creatinine Ratio 26 (6-26); Bilirubin,Total 0.5 mg/dL (0.3-1.0); Blood Urea Nitrogen 26 mg/dL (6-20); Calcium 8.5 mg/dL (8.6-10.3); Carbon Dioxide 25 mEq/L (23-29); Chloride 110 mEq/L (98-107); Globulin 2.3 g/dL (2.4-3.5); Glucose 99 mg/dL (70-105); Osmolality,Calculated 293 (280-300); Potassium 3.7 mEq/L (3.5-5.1); Sodium 139 mEq/L (136-145); Total Protein 5.9 g/dL (6.4-8.9); eGFR For African Americans > 60 (> 60); eGFR For Non-African Americans 56 (> 60)
[2018-03-03] MEDS ORDERED: Isovue-370 500 ML INFUS..BTL IV ONE (16:05)
[2018-03-03 16:11] LABS: Amphetamine Screen,Urine Negative ng/mL (Cutoff=1000); Barbiturate Screen,Urine Negative ng/mL (Cutoff=200); Benzodiazepines Screen,Urine Negative ng/mL (Cutoff=200); Cannabinoid Screen,Urine Negative ng/mL (Cutoff = 50); Cocaine Screen,Urine Negative ng/mL (Cutoff= 300); Opiate Screen,Urine Negative ng/mL (Cutoff=300); Phencyclidine Screen,Urine Negative ng/mL (Cutoff=25)
[2018-03-03 16:16] LABS: Mucus,Urine Few (Few)
[2018-03-03 16:17] LABS: Bacteria,Urine Few per hpf (None-Few); Renal Epithelial Cells,Urine Few per hpf (None-Few); Squamous Epithelial Cell,Urine Few per lpf (None-Few); Transitional Epi Cells,Urine Few per hpf (None-Few)
[2018-03-03] MEDS ORDERED: Naloxone 0.4 MG/ML INJ IVP PRN (17:57)
--- NOTE | 2018-03-03 18:46 | Internal Med History&Physical ---
<CruzitoelizabethzionDeo abbott - Last Filed: 03/03/18 20:25> Date of Encounter: 03/03/18 Time of Encounter: 17:00 Internal Medicine - H&P: HPI Chief complaint: Syncope Admitted From: Emergency Dept Plans for Post Hospital Care: Home History of present illness: Ms. Chambers is a 57 year old female w/PMH of COPD, previous CVA (02/06/17), HLD, HTN, PAD presents from the ED with chief complaint of syncope that occurred today. Patient states she felt lightheaded and had changes in vision prior to collapsing which was witnessed by her son who thinks patient may have hit her head. Patient denies headache or chest pain. EMS reports patient was somewhat somnolent post incident. Patient reports previous syncopal episodes as well as residual weakness in bilateral LEs due to previous CVA. Patient denies recent illness, fever, chills, nausea, vomiting, headache, chest pain, shortness of breath, abdominal pain, diarrhea, constipation, numbness, or tingling. Past Med Surg Social Fam HX - Past Medical History Source: patient, old records reviewed Medical history: COPD, CVA (02/06/17), hyperlipidemia, hypertension, peripheral artery disease, other Additional medical history: carotid stenosis Psychiatric history: no psych history - Past Surgical History Additional surgical history: stents in bilat legs - Social History Smoking Status: Current every day smoker Packs per day: 1 PPD Smokeless Tobacco Status: No Alcohol use: none Drug use: none Current living situation: Home Activity Level: Independent ambulation Recent Out of Country Travel Within the Last 8 Weeks: No Exposure or Possible Exposure to Illness During Travel: No - Family History Father Race: Family Member Ethnicity: Non- Living Status: Age at : 68 Cause of : HF Hx Family Cardiac Disorders: Yes (CAD, VT, HF) Mother Race: Family Member Ethnicity: Non- Living Status: Age at : 78 Cause of : Ovarian cancer Hx Family Cancer: Yes (Ovarian) Brother Race: Family Member Ethnicity: Non- Living Status: Still Living Hx Family Medical Disorders: No Sister History Unknown: Yes Race: Family Member Ethnicity: Non- Living Status: Still Living Internal Medicine - H&P: Meds Lisinopril [Zestril] 20 mg PO DAILY #30 tablet 02/04/17 [Rx] Aspirin 325 mg PO DAILY #30 tablet 02/07/17 [Rx] Atorvastatin [Lipitor] 20 mg PO HS #60 tablet 02/07/17 [Rx] HYDROcodone/Acet 5/325 mg [[place] 5-325 mg] 1 tab PO Q6H PRN 2 Days #10 tab 11/11 [Rx] Ibuprofen [Motrin] 600 mg PO Q6HR PRN #22 tab 11/11/17 [Rx] Azithromycin [Azithromycin 6-Tab Pack] 250 mg PO PER PKG DI #6 tab 01/12/18 [Rx] 3 Allergy/AdvReac Type Severity Reaction Status Date / Time No Known Allergies Allergy Verified 01/12/18 17:29 All Systems PM: A 10-system review of systems was performed and is negative for pertinent findings except as documented above in the HPI. - Constitutional Constitutional: as per HPI, weakness (Bilateral LEs), no chills, no fever(s), no night sweats - EENT Eyes: as per HPI, change in vision, no discharge, no pain, no photophobia Ears: no ear discharge, no ear pain, no tinnitus Nose, mouth and throat: no dysphagia, no nasal discharge, no neck pain, no sore throat - Breasts Breasts: as per HPI - Cardiovascular Cardiovascular ROS IM: as per HPI, lightheadedness, syncope, no chest pain, no diaphoresis, no dyspnea, no palpitations - Respiratory Respiratory: no cough, no dyspnea, no wheezing, no excessive phlegm production - Gastrointestinal Gastrointestinal: no abdominal pain, no diarrhea, no hematemesis, no hematochezia, no melena, no nausea, no vomiting - Genitourinary Genitourinary: no change in urinary stream, no dysuria, no flank pain, no hematuria Menstruation: as per HPI - Musculoskeletal Musculoskeletal ROS IM: no numbness, no tingling - Integumentary Integumentary IM: no rash, no unusual bruising - Neurological Neurological ROS: as per HPI, dizziness, no confusion, no convulsions, no focal weakness, no numbness, no tingling, no tremor(s) - Psychiatric Psychiatric: as per HPI - Endocrine Endocrine IM: as per HPI - Hematologic/Lymphatic Hematologic/Lymphatic: no easy bruising - Allergic/Immunologic Allergic/Immunologic: as per HPI - Constitutional Vitals: Temp Pulse Resp BP Pulse Ox 97.7 F 56 16 159/94 99 03/03/18 17:49 03/03/18 17:49 03/03/18 17:49 03/03/18 17:49 03/03/18 17:49 General appearance: Present: cooperative, A&O X 3, pleasant, no acute distress, answers questions appropriately - Head Head exam: Present: atraumatic, normocephalic - Eye Eye exam: Present: PERRL, conjuntiva pink, sclera anicteric Pupils: Present: PERRL - ENT ENT exam: Present: normal exam - Neck Neck exam general surgery: Present: normal inspection, supple, trachea midline. Absent: lymphadenopathy - Respiratory Respiratory exam: Present: CTAB. Absent: accessory muscle use, rales, rhonchi, wheezes - Cardiovascular Cardiovascular exam: Present: irregular rhythm, RRR, +S1, +S2. Absent: diastolic murmur, gallop, rubs, systolic murmur - GI/Abdominal GI/Abdominal exam: Present: normal bowel sounds, soft, no peritoneal signs. Absent: distended, tenderness - Rectal Rectal exam: Present: deferred - Additional comments: exam deferred. - Extremities Exam Extremities exam: Present: warm, radial pulses palpable and symmetrical. Absent : calf tenderness, cyanotic, pedal edema - Back Exam Back exam: Present: normal inspection - Neurological Exam Neurological exam: Present: alert (Bilateral LE weakness on exam), CN II-XII intact, oriented X3, no focal deficits. Absent: pronater drift, facial droop, speech deficit - Psychiatric Psychiatric exam: Present: normal affect, normal mood - Skin Skin exam: Present: dry, intact Internal Med - H&P Results - Labs CBC & Chem 7: 03/03/18 15:32 03/03/18 15:32 - EKG Data EKG shows normal: sinus rhythm (W/sinus arrhythmia) - EKG Data Prior EKG available for review: yes EKG comments: 03/03/18 18:55 EKG dated 01/12/18 shows sinus bradycardia with moderate ST depression. EKG dated 03/03/18 shows sinus rhythm with sinus arrhythmia, possible right ventricular conduction delay, septal myocardial infarction of indeterminate age. - Assessment and plan (1) Syncope and collapse Current Visit: Yes Status: Acute Assessment and plan: Acute syncope and collapse today. Pt. reports hx of syncope. Bilateral carotid duplex imaging from 02/05/18 shows right carotid system has nonstenotic plaque in left proximal ICA has a severe 60-79% stenosis. Echocardiogram. Continuous cardiac telemetry. Dysphagia screen ordered. NIHSS scale. Neurologic assessment every 2 hour. Vital signs assessment every 15 minutes 4, every 30 minute 2, every hour 2, and every 4 hours. Ultrasound of aorta limited ordered in ED. MRI of head/brain w/o contrast to r/o ischemia/infarct. Will consider Neurology consult based on MRI results. Falls/safety precautions, up with assist, bedrest with bathroom privileges with assist only. Patient and follow-up labs to be monitored carefully. Patient discussed with Dr. Bravo whop agrees w/plan of care. Pt. is high risk for further morbidity and decline based on current syncope resulting in collapse, hx of carotid stenosis, cardiac risk factors, current tobacco use, and hx of syncope. Observation. (2) HLD (hyperlipidemia) Current Visit: Yes Status: Chronic Assessment and plan: Hx of chronic HLD. Lipid panel in a.m. labs. Continue pts. Lipitor. Qualifiers: Hyperlipidemia type: pure hypercholesterolemia Qualified Code(s): E78.00 - Pure hypercholesterolemia, unspecified; E78.0 - Pure hypercholesterolemia (3) HTN (hypertension) Current Visit: Yes Status: Chronic Assessment and plan: Hx of chronic HTN. Monitor pt. and VS. Continue pts. Lisinopril. Qualifiers: Hypertension type: essential hypertension Qualified Code(s): I10 - Essential (primary) hypertension (4) COPD (chronic obstructive pulmonary disease) Current Visit: Yes Status: Chronic Assessment and plan: Hx of chronic COPD. Stable. Supplemental O2 with titration and SPO2 monitoring. Qualifiers: COPD type: unspecified COPD Qualified Code(s): J44.9 - Chronic obstructive pulmonary disease, unspecified (5) History of CVA (cerebrovascular accident) Current Visit: Yes Status: Chronic Assessment and plan: Hx of previous CVA in 02/06/17. Pt. reports some residual LE weakness but no other focal deficits, facial droop, or pronator drift on exam. Bilateral weakness in LEs noted. Continuous cardiac telemetry. Falls/safety precautions, up with assist, bedrest with bathroom privileges with assist only. (6) Hx of carotid stenosis Current Visit: Yes Status: Chronic Assessment and plan: Hx of chronic carotid stenosis. Bilateral carotid duplex imaging dated 02/05/18 shows right carotid system has nonstenotic plaque and left proximal ICA has a severe 60-79% stenosis. Monitor. Falls/safety precautions. (7) Tobacco use Current Visit: Yes Status: Chronic Assessment and plan: Hx of chronic tobacco abuse. Pt. reports smoking 1 PPD. 14 mg nicotine patch daily. (8) DVT prophylaxis Current Visit: Yes Status: Acute Assessment and plan: Bilateral SCDs on LEs for DVT prophylaxis until MRI resulted. - Time Spent With Patient Total time spent is greater than 50% in coordination of care (as documented) at patient's floor/unit and/or counseling patient: Greater than 35 minutes <Ada Bravo - Last Filed: 03/03/18 23:08> Date of Encounter: 03/03/18 Internal Medicine - H&P: HPI History of present illness: Ms. Chambers is a 57 year old female with PmHX of CVA, recurrent syncopal episodes and carotid artery stenosis. Pt presents once again following syncopal episode. Carotid doppler on her last admission showed Impressions: Findings: Right carotid system has nonstenotic plaque. Findings: Left proximal ICA has a severe, 60-79% stenosis. Assessment and plan 1. Syncope. Will monitor on telemetry. Orthostatic vitals. carotid doppler. 2. Carotid stenosis. Will consult vascular to see regarding Carotid doppler results. 3. Hx CVA. Resume ASA 325 mg daily. I performed a history and physical exam of the patient and discussed her management with the MANAGER MANAGING. I reviewed the CNPs note and agree with the documented findings and plan of care and adding addendum to A/P. All Systems PM: A 10-system review of systems was performed and is negative for pertinent findings except as documented above in the HPI. - Constitutional Vitals: Temp Pulse Resp BP Pulse Ox 97.4 F L 56 18 152/72 98 03/03/18 19:53 03/03/18 19:53 03/03/18 19:53 03/03/18 19:53 03/03/18 19:53 Internal Med - H&P Results - Labs CBC & Chem 7: 06/09/18 15:32 03/03/18 15:32 Labs: Cardiac Enzymes 03/03/18 Range/Units 21:04 Troponin I < 0.03 (< 0.04) ng/mL - Impressions ITS Impressions Brain MRI 03/03/18 18:04 IMPRESSION: Multiple old infarcts Multifocal small-vessel ischemic change No acute infarct. D/ / Riley Galvez / Riley Galvez Interpreting Provider: Riley Galvez - Time Spent With Patient Total time spent is greater than 50% in coordination of care (as documented) at patient's floor/unit and/or counseling patient:
[2018-03-03] MEDS: Nicotine 14 MG PATCH.TD24 TD SCH (21:36)
[2018-03-04 05:10] LABS: Basophils # 0.1 K/mcL (0.0-0.2); Eosinophils # 0.2 K/mcL (0.0-0.6); Hematocrit 35.6 % (35.3-44.9); Hemoglobin 11.7 g/dL (11.5-15.4); Immature Granulocytes % 0.4 % (0-4); Lymphocytes # 1.8 K/mcL (0.6-4.6); Mean Corpuscular HGB Conc 32.9 g/dL (31.6-35.5); Mean Corpuscular Hemoglobin 28.1 pg (28.0-33.3); Mean Corpuscular Volume 85.4 fL (83.0-100.0); Mean Platelet Volume 11.9 fL (9.4-12.4); Monocytes # 0.5 K/mcL (0.0-1.3); Monocytes % 9.9 %; Neutrophils # 2.5 K/mcL (1.6-8.9); Platelet Count 131 K/mcL (140-400); Red Blood Count 4.17 M/mcL (3.82-4.97); Red Cell Distribution Width 13.5 % (11.5-14.5); Segmented Neutrophils % 49.7 %
[2018-03-04 05:37] LABS: Albumin 3.2 g/dL (3.5-5.7); Albumin/Globulin Ratio 1.5 (1.1-2.2); Bilirubin,Total 0.3 mg/dL (0.3-1.0); Calcium 8.4 mg/dL (8.6-10.3); Chol/HDL Ratio 5.4 (0-4.9); Globulin 2.1 g/dL (2.4-3.5); Magnesium 1.9 mg/dL (1.6-2.6); Potassium 3.2 mEq/L (3.5-5.1); Total Protein 5.3 g/dL (6.4-8.9)
[2018-03-04 07:50] LABS: Estimated Average Glucose 126 mg/dl
[2018-03-04] MEDS ORDERED: 0.9 % Sodium Chloride 1,000 ML IVC SCH (08:30)
[2018-03-04] MEDS ORDERED: Aspirin Enteric Coated 81 MG Tablet PO SCH (09:00)
[2018-03-04] MEDS: Lisinopril 20 MG TABLET PO SCH (09:33)
[2018-03-04] MEDS: Aspirin 325 MG TABLET PO SCH (09:33)
--- NOTE | 2018-03-04 10:11 | Internal Med Progress Note ---
Date of Encounter: 03/04/18 Time of Encounter: 10:09 - Assessment and plan (1) Tobacco use Current Visit: Yes Status: Chronic Assessment and plan: Encouraged patient to stop smoking-nicotine patch daily (2) Syncope and collapse Current Visit: Yes Status: Acute Assessment and plan: Patient reports history of syncope experienced sick acute syncope and collapse today. Bilateral carotid duplex imaging from 02/05/18 shows right carotid system has nonstenotic plaque in left proximal ICA has a severe 60-79% stenosis we will obtain echocardiogram continuous cardiac monitoring neuro-assessments MRI does show multiple old infarcts no acute infarcts Chest CTA with no PE (3) Hx of carotid stenosis Current Visit: Yes Status: Chronic Assessment and plan: We will continue with aspirin and statin- Did speak with vascular surgery Dr. Elizondo who advised to continue with ASA statin - follow-up with Dr. Fontanez as scheduled (4) History of CVA (cerebrovascular accident) Current Visit: Yes Status: Chronic Assessment and plan: History of previous CVA 02/06/17 patient reports some residual left extremity weakness but no other focal deficits facial droop or pronator drift on exam. Continue with aspirin and statin (5) HLD (hyperlipidemia) Current Visit: Yes Status: Chronic Assessment and plan: Hx of chronic HLD. Lipid panel in a.m. labs. Continue pts. Lipitor. Qualifiers: Hyperlipidemia type: pure hypercholesterolemia Qualified Code(s): E78.00 - Pure hypercholesterolemia, unspecified; E78.0 - Pure hypercholesterolemia (6) HTN (hypertension) Current Visit: Yes Status: Chronic Assessment and plan: Hx of chronic HTN. Continue. Lisinopril. Qualifiers: Hypertension type: essential hypertension Qualified Code(s): I10 - Essential (primary) hypertension (7) COPD (chronic obstructive pulmonary disease) Current Visit: Yes Status: Chronic Assessment and plan: This time continue with bronchodilators and oxygen as needed Qualifiers: COPD type: unspecified COPD Qualified Code(s): J44.9 - Chronic obstructive pulmonary disease, unspecified (8) DVT prophylaxis Current Visit: Yes Status: Acute Assessment and plan: SCD - Time Spent With Patient Total time spent is greater than 50% in coordination of care (as documented) at patient's floor/unit and/or counseling patient: - Subjective Interval history: Patient seen and examine at bedside Denies any pain or discomfort- I reviewed treatment plan with patient she verbalizes understanding - Constitutional Vitals: Temp Pulse Resp BP Pulse Ox 98.1 F 61 15 160/80 95 03/04/18 07:25 03/04/18 07:25 03/04/18 07:25 03/04/18 07:25 03/04/18 07:25 General appearance: Present: cooperative, A&O X 3, pleasant, no acute distress, answers questions appropriately - Head Head exam: Present: atraumatic, normocephalic - Eye Eye exam: Present: PERRL, conjuntiva pink, sclera anicteric Pupils: Present: PERRL - Neck Neck exam general surgery: Present: supple, trachea midline. Absent: lymphadenopathy - Respiratory Respiratory exam: Present: CTAB. Absent: accessory muscle use, rales, rhonchi, wheezes - Cardiovascular Cardiovascular exam: Present: RRR, +S1, +S2. Absent: diastolic murmur, gallop, rubs, systolic murmur - GI/Abdominal GI/Abdominal exam: Present: normal bowel sounds, soft, no peritoneal signs. Absent: distended, tenderness - Extremities Exam Extremities exam: Present: warm, radial pulses palpable and symmetrical. Absent : calf tenderness, cyanotic, pedal edema - Neurological Exam Neurological exam: Present: CN II-XII intact, oriented X3, no focal deficits. Absent: pronater drift, facial droop, speech deficit - Skin Skin exam: Present: dry, intact Internal Medicine: Result - Labs CBC & Chem 7: 03/04/18 04:16 03/04/18 04:16 Labs: Short CBC 03/04/18 Range/Units 04:16 WBC 5.1 (4.3-11.1) K/mcL Hgb 11.7 (11.5-15.4) g/dL Hct 35.6 (35.3-44.9) % Plt Count 131 L (140-400) K/mcL Neutrophils # 2.5 (1.6-8.9) K/mcL BMP 03/04/18 04:16 Sodium 143 Potassium 3.2 L Chloride 113 H Carbon Dioxide 24 BUN 25 H Creatinine 1.38 H Glucose 122 H Calcium 8.4 L Cardiac Enzymes 03/03/18 03/04/18 Range/Units 21:04 04:16 Troponin I < 0.03 < 0.03 (< 0.04) ng/mL Liver Function 03/04/18 Range/Units 04:16 Total Bilirubin 0.3 (0.3-1.0) mg/dL AST 10 L (13-39) Units/L ALT 8 (7-52) Units/L Alkaline Phosphatase 60 (34-104) Units/L Albumin 3.2 L (3.5-5.7) g/dL - ABG Interpretation ABG results: PT/INR, D-dimer PT 12.9 Seconds (9.4-12.1) H 03/03/18 15:32 D-Dimer 966 ng/mLFEU (0-500) H 03/03/18 15:32 - Impressions Impressions Brain MRI 03/03/18 18:04 IMPRESSION: Multiple old infarcts Multifocal small-vessel ischemic change No acute infarct. D/ / Riley Galvez / Riley Galvez Interpreting Provider: Riley Galvez - VTE Documentation of Mechanical Device: Intermittent pneumatic compression device Consult Discharge Plan - Plan Referrals: Deep Barber MD [Primary Care Provider] -
[2018-03-04] MEDS: Nicotine 14 MG PATCH.TD24 TD SCH (18:05)
[2018-03-04] MEDS: Acetaminophen 325 MG TABLET PO PRN (20:51)
[2018-03-05 05:30] LABS: Basophils # 0.1 K/mcL (0.0-0.2); Basophils % 0.9 %; Eosinophils # 0.2 K/mcL (0.0-0.6); Eosinophils % 3.7 %; Hematocrit 33.5 % (35.3-44.9); Immature Granulocytes % 0.4 % (0-4); Lymphocytes # 2.2 K/mcL (0.6-4.6); Lymphocytes % 39.3 %; Mean Corpuscular HGB Conc 32.8 g/dL (31.6-35.5); Mean Corpuscular Hemoglobin 27.6 pg (28.0-33.3); Mean Corpuscular Volume 84.2 fL (83.0-100.0); Mean Platelet Volume 11.3 fL (9.4-12.4); Monocytes # 0.4 K/mcL (0.0-1.3); Monocytes % 7.1 %; Neutrophils # 2.7 K/mcL (1.6-8.9); Platelet Count 128 K/mcL (140-400); Red Blood Count 3.98 M/mcL (3.82-4.97); Red Cell Distribution Width 13.4 % (11.5-14.5); Segmented Neutrophils % 48.6 %
[2018-03-05 05:50] LABS: Alanine Aminotransferase 7 Units/L (7-52); Albumin 3.1 g/dL (3.5-5.7); Albumin/Globulin Ratio 1.4 (1.1-2.2); Alkaline Phosphatase 52 Units/L (34-104); Aspartate Amino Transferase 11 Units/L (13-39); BUN/Creatinine Ratio 23 (6-26); Bilirubin,Total 0.3 mg/dL (0.3-1.0); Blood Urea Nitrogen 22 mg/dL (6-20); Calcium 8.2 mg/dL (8.6-10.3); Carbon Dioxide 23 mEq/L (23-29); Chloride 111 mEq/L (98-107); Globulin 2.2 g/dL (2.4-3.5); Glucose 100 mg/dL (70-105); Osmolality,Calculated 291 (280-300); Potassium 3.5 mEq/L (3.5-5.1); Sodium 139 mEq/L (136-145); Total Protein 5.3 g/dL (6.4-8.9); eGFR For African Americans > 60 (> 60); eGFR For Non-African Americans > 60 (> 60)
[2018-03-05] MEDS: Nicotine 14 MG PATCH.TD24 TD SCH (08:16)
[2018-03-05] MEDS: Acetaminophen 325 MG TABLET PO PRN (08:16)
[2018-03-05] MEDS: Aspirin 325 MG TABLET PO SCH (08:16)
[2018-03-05] MEDS: Lisinopril 20 MG TABLET PO SCH (08:16)
[2018-03-05 11:36] VITALS: BP 173/81
[2018-03-05] MEDS ORDERED: amLODIPine 5 MG TABLET PO SCH (13:45)
--- NOTE | 2018-03-05 14:05 | Discharge Summary ---
- NOTES TO OUTPATIENT PROVIDER Notes to Outpatient Provider: Bilateral carotid duplex imaging from 02/05/18 shows right carotid system has nonstenotic plaque in the left axilla ICA severe 60-79% stenosis-discussed with vascular surgery advised to follow-up with Dr. Lewis as outpatient continue with aspirin and statin. Follow-up with cardiology as outpatient-30 day event monitor Orders not resulted at time of discharge: Pending orders 03/06/18 04:00 Complete Blood Count [HEME] AM 0400 Comprehensive Metabolic Panel AM 0400 Date of Encounter: 03/05/18 Time of Encounter: 13:52 - Discharge Diagnosis (1) Tobacco use Priority: Secondary Status: Chronic (2) Syncope and collapse Priority: Primary Status: Acute (3) Hx of carotid stenosis Priority: Secondary Status: Chronic (4) History of CVA (cerebrovascular accident) Priority: Secondary Status: Chronic (5) HLD (hyperlipidemia) Priority: Secondary Status: Chronic Qualifiers: Hyperlipidemia type: pure hypercholesterolemia Qualified Code(s): E78.00 - Pure hypercholesterolemia, unspecified; E78.0 - Pure hypercholesterolemia (6) HTN (hypertension) Priority: Secondary Status: Chronic Qualifiers: Hypertension type: essential hypertension Qualified Code(s): I10 - Essential (primary) hypertension (7) COPD (chronic obstructive pulmonary disease) Priority: Secondary Status: Chronic Qualifiers: COPD type: unspecified COPD Qualified Code(s): J44.9 - Chronic obstructive pulmonary disease, unspecified Hospital course: Ms. Chambers is a 57 year old female past medical history of COPD previous CVA (02/06/17) hyperlipidemia hypertension PAD presented to [facility] emergency department after experiencing a syncopal episode. She felt lightheaded with changes in vision prior to collapsing and it was witnessed by her son. Patient does report previous syncopal episodes as well as residual weakness in bilateral lower extremities due to previous CVAs. Head CT shows no acute intracranial abnormalities chest CTA with no evidence of pulmonary embolism MRI with no acute infarct it does show old multiple infarcts echo shows EF of 65-70 % mild concentric left ventricular hypertrophy mild left ventricular diastolic dysfunction no pulmonary hypertension no significant valvular dysfunction mildly enlarged left atrial size up on review of ECW it does appear that note dated 01/17/2018 Deborah Hubbard patient did have a previous Holter monitor in 2017 which did show baseline rhythm normal sinus rare PACs rare PVCs several nonsustained episodes of SVT longest 11 beats likely atrial tachycardia. Upon review of telemetry overnight he does not appear any events did occur there were some episodes of PACs. Recommending outpatient follow-up with cardiology and event monitoring. I did discuss carotid duplex findings-dated 02/05/18 which did show right carotid has some nonstenotic plaque in the proximal ICA has a severe 60-79 % stenosis did discuss findings with Dr. Elizondo of vascular surgery who advised to continue with aspirin and statin and to follow-up with Dr. Fontanez as scheduled no surgical intervention at this time. Orthostatic vital signs were completed and were within normal limits. Patient was evaluated by PT and OT she is returned to her baselines insulating independently without any difficulties I did review follow-up appointments with the patient. Advised patient follow-up with vascular surgery as well as cardiology set up for an outpatient event monitor. Advised patient to continue with home medications and to take medications as prescribed. Advised patient to follow-up with primary care physician since this provider knows her best and can adjust medications accordingly. Patient did verbalize understanding. She is hemodynamically stable at this time. I did note that her blood pressure was slightly elevated however she was not taking her Norvasc which will we will resume. She is ready for discharge - Time Spent with Patient Total time spent providing and/or coordinating discharge services: - Discharge Medications Home Medications: Atorvastatin [Lipitor] 20 mg PO HS #60 tablet 02/07/17 [Rx] Aspirin [Lo-Dose Aspirin EC] 81 mg PO DAILY 03/05/18 [History] Lisinopril [Zestril] 40 mg PO DAILY 03/05/18 [History] Tiotropium Br/Olodaterol HCl [Stiolto Respimat Inhal [place]] 2 puff IH DAILY 08/12 [History] amLODIPine [Norvasc] 5 mg PO DAILY 03/05/18 [History] Allergies/Adverse Reactions: 3 Allergy/AdvReac Type Severity Reaction Status Date / Time No Known Allergies Allergy Verified 01/12/18 17:29 Date of admission: 03/03/18 17:19 Primary care physician: Deep Barber MD Consults: 03/03/18 17:59 Consult to Body Shop Mechanic [CONS] Routine Reason for SW Consult: Please assess patient for possible home needs for post -discharge planning. 03/03/18 18:01 Consult to Physical Therapy [CONS] Routine Comment: Evaluate, develop and implement POC Reason for Consult: Patient reports syncopal episode today. Reports hx of syncopal episodes. Weakness in bilateral LEs. Please assess patient for ambulation strength, safety, stability, and possible home assistive/rehabilitation needs for post- discharge planning. Does patient have active BEDREST order?: Yes Is patient medically & hemodynamically stable?: Yes Patient assessed for mobility or mobilized this visit?: No Discharging clinician: Sola José Anticipated date of discharge: 03/05/18 - Constitutional Vitals: Temp Pulse Resp BP Pulse Ox 98.2 F 59 16 155/74 95 03/05/18 11:33 03/05/18 11:33 03/05/18 11:33 03/05/18 11:33 03/05/18 11:33 General appearance: Present: cooperative, A&O X 3, pleasant, no acute distress, answers questions appropriately - Head Head exam: Present: atraumatic, normocephalic - Eye Eye exam: Present: PERRL, conjuntiva pink, sclera anicteric Pupils: Present: PERRL - Neck Neck exam general surgery: Present: supple, trachea midline. Absent: lymphadenopathy - Respiratory Respiratory exam: Present: CTAB. Absent: accessory muscle use, rales, rhonchi, wheezes - Cardiovascular Cardiovascular exam: Present: RRR, +S1, +S2. Absent: diastolic murmur, gallop, rubs, systolic murmur - GI/Abdominal GI/Abdominal exam: Present: normal bowel sounds, soft, no peritoneal signs. Absent: distended, tenderness - Extremities Exam Extremities exam: Present: warm, radial pulses palpable and symmetrical. Absent : calf tenderness, cyanotic, pedal edema - Neurological Exam Neurological exam: Present: CN II-XII intact, oriented X3, no focal deficits. Absent: pronater drift, facial droop, speech deficit - Skin Skin exam: Present: dry, intact - Patient Status Disposition: Home, Self-Care Condition: Fair Functional capacity at discharge: independent ambulation Overall status at discharge: patient is back to baseline - Discharge Instructions Instructions: Return to Work Instructions (DC) Follow Up With: Riley Velez MD [Partnered Physician] - 03/07/18 2:20 pm Deep Barber MD [Primary Care Provider] - 03/09/18 10:15 am Deborah Hubbard MD [Partnered Physician] - 03/21/18 8:15 am Corbin Mullen MD [Partnered Physician] - 03/12/18 8:45 am Forms: Work/School Release - Diet and Activity Activity: increase activity as tolerated Diet: advance to your usual diet - VTE Documentation of Mechanical Device: Intermittent pneumatic compression device
--- NOTE | 2018-03-05 15:26 | Electrocardiograph Report ---
[address] [address] Test Date: 2018-03-03 Pat Name: An Chambers Department: 103 Room: 3B43 Gender: F Software Packager: AM : 1960 Requested By: Jonathon Vieira Order Number: [id number] Reading MD: Erick Dennison Measurements Intervals [place] Rate: 69 P: 72 ID: [id number] QRS: 84 QRSD: 78 T: 73 QT: 425 QTc: 445 Interpretive Statements SINUS RHYTHM WITH SINUS ARRHYTHMIA Electronically Signed On 03-05-2018 15:24:53 EDT by Erick Dennison
== END 2018-03-05 16:23 | disposition home or self-care (01) ==
LOC: 3BNU 14:52 → EMEROO 14:52 → 3BNU 17:49
PROVIDERS: ADMIT Internal Medicine; ATTEND Internal Medicine

== ENCOUNTER 2018-08-01 10:28 | Inpatient (IN) ==
[2018-08-01] MEDS ORDERED: *HR* FentaNYL (PF) 100 MCG/2 ML VIAL ONE (10:32)
[2018-08-01] MEDS ORDERED: *HR* Midazolam HCl 2 MG/2 ML VIAL ONE (10:32)
[2018-08-01] MEDS ORDERED: *HR* Succinylcholine 200 MG/10 ML VIAL IVP ONE (10:32)
[2018-08-01] MEDS ORDERED: Lidocaine -MPF 2% 2 ML VIAL ONE (10:32)
[2018-08-01] MEDS ORDERED: *HR* Rocuronium Bromide 50 MG/5 ML VIAL ONE (10:32)
[2018-08-01] MEDS ORDERED: Dexamethasone 4 MG/ML VIAL ONE (10:32)
[2018-08-01] MEDS ORDERED: *HR* Propofol 200 MG/20 ML VIAL IVP ONE (10:32)
[2018-08-01] MEDS ORDERED: Ondansetron 4 MG/2 ML VIAL ONE (10:32)
[2018-08-01] MEDS ORDERED: *HR* Remifentanil 2 MG VIAL IVP ONE (10:33)
--- NOTE | 2018-08-01 10:42 | Anesthesia Evaluation PreOp ---
Date of Encounter: 08/01/18 Time of Encounter: 10:39 - Past History Planned Operation: LEFT CEA Cardiac History: HTN, Hyperlipidemia, Other (PAD, POST DAWSON ILIOFEMORAL STENTS) Pulmonary History: Smoker, COPD, Other (CHRONIC SMALL LEFT PLEURAL EFFUSION) LANDSCAPE NURSERYMAN History: CVA (MULTIPLE, RESIDUAL LEFT SIDED), TIA, Syncope Other Medical History: Renal (CKD 3) Anesthesia History: No Prior Anesthetic Complications, Past Anesthesia (HYST, DAWSON LE STENTS) : No Alcohol Use: none Drug use: none Medications and Allergies Atorvastatin [Lipitor] 20 mg PO HS #60 tablet 02/07/17 [Rx] Aspirin [Lo-Dose Aspirin EC] 81 mg PO DAILY 03/05/18 [History] Lisinopril [Zestril] 40 mg PO DAILY 03/05/18 [History] Tiotropium Br/Olodaterol HCl [Stiolto Respimat Inhal [place]] 2 puff IH DAILY 03/05/18 [History] amLODIPine [Norvasc] 5 mg PO DAILY 03/05/18 [History] Allergy/AdvReac Type Severity Reaction Status Date / Time No Known Allergies Allergy Verified 01/12/18 17:29 - Meds/Allergy Pre-op Review Medications Reviewed: Yes Allergies Reviewed: Yes Beta Blockers on Current Med List: Yes If Beta Blockers taken, Date/Time (Last Dose taken): 0700 Anesthesia Results - Labs Laboratory Last Values WBC 5.8 K/mcL (4.3-11.1) 07/26/18 12:13 RBC 4.74 M/mcL (3.82-4.97) 07/26/18 12:13 Hgb 13.5 g/dL (11.5-15.4) 07/26/18 12:13 Hct 40.4 % (35.3-44.9) 07/26/18 12:13 MCV 85.2 fL (83.0-100.0) 07/26/18 12:13 MCH 28.5 pg (28.0-33.3) 07/26/18 12:13 MCHC 33.4 g/dL (31.6-35.5) 07/26/18 12:13 RDW 14.5 % (11.5-14.5) 07/26/18 12:13 Plt Count 173 K/mcL (140-400) 07/26/18 12:13 MPV 10.5 fL (9.4-12.4) 07/26/18 12:13 Immature Gran % 0.3 % (0-4) 07/26/18 12:13 Seg Neutrophils % 54.9 % 07/26/18 12:13 Lymphocytes % 34.9 % 07/26/18 12:13 Monocytes % 5.5 % 07/26/18 12:13 Eosinophils % 3.4 % 07/26/18 12:13 Basophils % 1.0 % 07/26/18 12:13 Neutrophils # 3.2 K/mcL (1.6-8.9) 07/26/18 12:13 Lymphocytes # 2.0 K/mcL (0.6-4.6) 07/26/18 12:13 Monocytes # 0.3 K/mcL (0.0-1.3) 07/26/18 12:13 Eosinophils # 0.2 K/mcL (0.0-0.6) 07/26/18 12:13 Basophils # 0.1 K/mcL (0.0-0.2) 07/26/18 12:13 PT 12.2 Seconds (9.4-12.1) H 07/26/18 12:13 INR 1.1 07/26/18 12:13 APTT 34.2 Seconds (26.0-36.0) 07/26/18 12:13 Sodium 141 mEq/L (136-145) 07/26/18 12:13 Potassium 3.7 mEq/L (3.5-5.1) 07/26/18 12:13 Chloride 106 mEq/L (98-107) 07/26/18 12:13 Carbon Dioxide 27 mEq/L (23-29) 07/26/18 12:13 BUN 27 mg/dL (8-23) H 07/26/18 12:13 Creatinine 1.11 mg/dL (0.60-1.20) 07/26/18 12:13 Est GFR ( Amer) > 60 (> 60) 07/26/18 12:13 Est GFR (Non-Af Amer) 50 (> 60) L 07/26/18 12:13 BUN/Creatinine Ratio 24 (6-26) 07/26/18 12:13 Glucose 98 mg/dL (70-105) 07/26/18 12:13 Calculated Osmolality 297 (280-300) 07/26/18 12:13 Calcium 9.8 mg/dL (8.6-10.3) 07/26/18 12:13 Blood Type A POSITIVE 07/26/18 12:13 Antibody Screen NEGATIVE 07/26/18 12:13 Crossmatch See Detail 07/26/18 12:13 - Imaging Additional studies: CAROTID DUPLEX 01/2018: Findings: Right carotid system has nonstenotic plaque. Findings: Left proximal ICA has a severe, 60-79% stenosis. BRAIN MRI 02/2018: Multiple old infarcts Multifocal small-vessel ischemic change TTE 02/2018: LVEF 65-70%. Mild concentric left ventricular hypertrophy. Mild left ventricular diastolic dysfunction. No pulmonary hypertension. No significant valvular dysfunction. Mildly enlarged left atrial size. CT CHEST 04/2018: 1. The recent chest radiograph finding is related to chronic atelectasis/scarring within the lingula and left lower lobe, as well as a small chronic left pleural effusion which is slightly larger from the previous exam. 2. Mild emphysema. 3. Severe atherosclerosis, including a moderate origin stenosis of the left common carotid artery and severe coronary artery disease. Anesthesia Exam O2 Sat Height 1.6 m Weight 58.06 kg NPO (# of Hours): 8 - HEENT Mallampati: I Teeth: Poor dentition Denture Type: Upper: Complete - LANDSCAPE NURSERYMAN LOC: Oriented LANDSCAPE NURSERYMAN Motor: Normal RUE, Normal RLE, Normal Face (CRANIAL NERVES 1, ), Deficit LUE (4/5 MOTOR), Deficit LLE (4/5 MOTOR) - Cardiac Rhythm: Regular - Pulmonary Breath Sounds: bilateral Clear Respiratory Effort: Symmetrical Anesthesia Assess/Plan ASA Score: 4 Anesthetic Plan: General Monitoring Plan: Standard Monitors, A-Line Recovery Plan: PACU Anes Supervising Prov Stmt: [place] LIST NOT UPDATED THIS VISIT PATIENT'S CHART AND CURRENT MEDICATIONS REVIEWED CURRENT MEDICATIONS: Aspirin 325 MG Tablet, Si tablet Orally Once a day Ipratropium-Albuterol 0.5-2.5 (3) MG/3ML Solution, Si ml Inhalation every 6 hrs Amlodipine Besylate 5 MG Tablet, Si tablet Orally Once a day Carvedilol 6.25 MG Tablet, Sig: as directed Orally Twice a day Atorvastatin Calcium 40 MG Tablet, Si tablet Orally Once a day Aspirin 325 MG Tablet, Si tablet Orally Once a day Lisinopril 40 MG Tablet, Si tablet Once a day Orally 90 days Stiolto Respimat 2.5-2.5 MCG/ACT Aerosol Solution, Si puffs Inhalation Once a day Start Date: 07/13/2017 ProAir HFA 108 (90 Base) MCG/ACT Aerosol Solution, Si puffs as needed Inhalation every 6 hrs Start Date: 09/08/2017 PATIENT INFORMED AND CONSENTED. RISKS AND BENEFITS, INCLUDING RISK OF STROKE, MD, ARRHYTHMIAS DISCUSSED. PATIENT WISHES TO PROCEED.
--- NOTE | 2018-08-01 10:50 | History & Physical Report ---
Date of Encounter: 08/01/18 Time of Encounter: 10:44 24 Hour HP Update - Instructions Instructions: If the History and Physical is less than 30 days old and was completed prior to A.M. admission and or procedure and has NOT been updated on calendar day of procedure please complete this update prior to performing procedure. - Update Patient reports changes in Medical Condition: No Changes in examination, assessment, or condition: No Changes in Medication: No Preop tests/diagnostics Reviewed: Yes Surgery Remains Indicated: Yes Consent for Planned Operative Procedure(s) Verified: Yes - Pre-Operative Checklist Preoperative Checklist Indicated: Yes Prophylactic Antibiotic Ordered: Yes (Vancomycin due to MRSA risk) Home Medications Include Beta Amarilis: No Beta Amarilis Taken Today (Day of Surgery): No Beta Amarilis Taken Yesterday (Day Prior to Surgery): No Is VTE Prophylaxis Indicated?: Yes
[2018-08-01] MEDS ORDERED: Lidocaine -MPF 4% 5 ML AMPUL ONE (10:53)
[2018-08-01] MEDS ORDERED: CeFAZolin Syr 2,000MG/20 ML 2,000 MG/20 ML SYRINGE IVPB ONE (10:57)
[2018-08-01] MEDS ORDERED: Albuterol 2.5 MG/3 ML NEBULIZER IH ONE (10:58)
[2018-08-01] MEDS: Ringers Solution, Lactated 1,000 ML IVC SCH ×2 (11:06→16:58)
[2018-08-01] MEDS ORDERED: Vancomycin 1,000 MG, Sodium Chloride IRRigation 1,000 ML IR ONE (12:00)
[2018-08-01] MEDS ORDERED: Heparin 1,000 UNITS/500 mL 1,000 ML ONE (12:10)
[2018-08-01] MEDS ORDERED: Vancomycin 1,000 MG VIAL ONE (12:10)
[2018-08-01] MEDS ORDERED: Bupivacaine-MPF 0.25% 10 ML VIAL ONE (12:10)
[2018-08-01] MEDS ORDERED: Protamine Sulfate 50 MG/5 ML VIAL IVP ONE (12:10)
[2018-08-01] MEDS ORDERED: NiCARdipine 2.5 MG/10 ML Syringe IVPB ONE (12:12)
[2018-08-01] MEDS ORDERED: *HR* Labetalol 100 MG/20 ML MDV ONE (12:12)
[2018-08-01] MEDS ORDERED: *HR* Phenylephrine 10 MG/ML VIAL ONE (13:26)
[2018-08-01] MEDS ORDERED: *HR* HYDROmorphone (PF) 1 MG/ML SYRINGE IVP PRN (14:37)
[2018-08-01] MEDS ORDERED: *HR* OxyCODONE Immed Rel 5 MG TABLET PO PRN ×2 (14:37→18:49)
[2018-08-01] MEDS ORDERED: *HR* Promethazine 25 MG/ML VIAL IVP PRN (14:37)
[2018-08-01] MEDS ORDERED: *HR* Labetalol 20 MG/4 ML SYRINGE IVP PRN ×2 (14:37→18:49)
[2018-08-01] MEDS ORDERED: *HR* Heparin 5,000 UNIT/ML VIAL ONE (15:47)
--- NOTE | 2018-08-01 16:32 | Operative Note ---
Date of procedure: 08/01/18 Pre-op diagnosis: 60-79% Left internal carotid artery stenosis Post-op diagnosis: same Procedure: Left carotid endarterectomy with hemashield patch angioplasty. Complications: None Anesthesia: CHANDRIKAA Surgeon: Riley Velez Was there an senior office assistant present: No Estimated blood loss (cc): 50 Specimen: Left carotid plaque Condition: stable Disposition: PACU Procedure in Detail: Indications: The patient is a 58-year-old female with a history of bilateral hemispheric cerebrovascular accidents. She also has a history of hypertension, hyperlipidemia and tobacco abuse. The patient was found to have recurrent transient ischemic attacks was found have a 60-79% left internal carotid artery stenosis. Left carotid endarterectomy was recommended to reduce her risk of future stroke. Procedure: The patient was identified in the preoperative area. The risks, benefits, and alternatives of the procedure were discussed and all questions were answered. The patient was then taken to the operating room and placed in supine position on the operating table. After the induction of general endotracheal anesthesia, the patient was cleaned and draped in normal sterile fashion. A longitudinal incision was made anterior to the left sternocleidomastoid muscle. Hemostasis was obtained via electrocautery. Through a process of blunt, sharp, and electrocautery dissection, the platysma was incised with electrocautery. The jugular vein was identified. The facial vein was dissected proximally. The vesel was then ligtated with 2-0 silk suture and divided. The jugular vein was then retracted to expose the carotid bifurcation. The patient received 2000 units of heparin intravenously at this time. Proximal dissection of the common and external carotid arteries were performed circumferentially. Dissection of the internal carotid was performed circumferentially. Vessels loops were passed around the internal and external carotid and an umbilical tape was passed from the common carotid artery. The patient received additional 3000 units of heparin intravenously. Additional anticoagulation was given during procedure to maintain adequate anticoagulation. After waiting adequate time for the heparin to circulate, the vessels were occluded and a longitudinal arteriotomy was made into the common carotid artery and extended into the internal carotid beyond the plaque. The plaque was long, ulcerated and heavily calcified. Vigorous pulsatile retrograde flow was noted from the internal carotid artery upon release of the vessel loop. Rapid pulsatile retrograde flow was consistent with significant retrograde perfusion. Given this finding, a shunt was not placed. A dental Marcus was used to perform a standard endarterectomy. Proximal and distal endpoints were inspected an no elevated flaps were noted. A Hemashield patch was cut to fit the defect and sutured in place with running 6-0 Prolene. Prior to completing the closure, each vessel was flushed and then reoccluded. Heparinized saline was infused into the lumen. The patch was completed. Flow was restored in the external carotid artery, followed the common carotid artery, lastly the internal carotid artery was opened. A low resistance arterialized signal was present within the internal carotid artery beyond the patch. Thrombin and Gelfoam were used to aid in hemostasis. Meticulous hemostasis was obtained throughout the wound with electrocautery. Platelet rich and platelet poor plasma were infused into the wounds. The sternocleidomastoid was reapproximated with interrupted 3-0 Vicryl. Platelet rich and platelet poor plasma were infused into the wound. A TLS drain was brought through a separate stab incision and sutured in place with 0 silk suture. The platysma was reapproximated with running 3-0 Vicryl. Local anesthetic was infused in the skin. A 3-0 Monocryl was used to reapproximate the skin. A sterile dressing was applied. The patient was extubated, taken to the recovery room in stable condition.
[2018-08-01] MEDS ORDERED: Naloxone 0.4 MG/ML INJ IVP PRN (18:49)
[2018-08-01] MEDS ORDERED: 0.9 % Sodium Chloride 1,000 ML IVC SCH (18:49)
[2018-08-01] MEDS ORDERED: Acetaminophen 325 MG TABLET PO PRN (18:49)
[2018-08-01] MEDS ORDERED: OXYCODONE Oral CONC 10 MG/0.5 ML ORAL.SYG SL PRN ×2 (18:49)
[2018-08-01] MEDS: *HR* Metoprolol 5 MG/5 ML VIAL IVP SCH ×2 (20:13→23:36)
[2018-08-01] MEDS: *HR* HYDROcodone/Acet 5/325 mg TABLET PO PRN (20:18)
--- NOTE | 2018-08-01 20:45 | Anesthesia Evaluation Post Op ---
Date of Encounter: 08/01/18 Time of Encounter: 17:25 - Discharge PostOp Status: Transfer Patient to floor (Patient's vital signs have been reviewed. Patient is stable postoperatively and has adequately recovered from anesthesia. Patient is determined to have stable airway patency and respiratory function including respiratory rate and oxygen saturation. Patient has a stable heart rate, blood pressure and adequate hydration. Patients mental status is acceptable. Patients temperature is appropriate. Pain and nausea are adequately controlled.)
[2018-08-01] MEDS: Ipratropium/Albuterol Neb 3 ML IH SCH (21:26)
[2018-08-02] MEDS: Ipratropium/Albuterol Neb 3 ML IH SCH (03:10)
[2018-08-02] MEDS: *HR* Metoprolol 5 MG/5 ML VIAL IVP SCH (05:41)
[2018-08-02] MEDS: *HR* HYDROcodone/Acet 5/325 mg TABLET PO PRN (05:41)
[2018-08-02] MEDS ORDERED: *HR* Heparin 5,000 UNIT/ML VIAL SQ SCH ×2 (06:00)
--- NOTE | 2018-08-02 07:00 | Discharge Summary ---
Orders not resulted at time of discharge: Pending orders 07/31/18 09:38 Red Blood Cells [BBK] Routine 08/01/18 15:45 Surgical Pathology [PTH] Routine Date of Encounter: 08/02/18 Time of Encounter: 08:10 - Discharge Diagnosis (1) Carotid stenosis, bilateral Priority: Primary Status: Chronic (2) Tobacco use Priority: Secondary Status: Chronic (3) HLD (hyperlipidemia) Priority: Secondary Status: Chronic Qualifiers: Hyperlipidemia type: mixed hyperlipidemia Qualified Code(s): E78.2 - Mixed hyperlipidemia (4) HTN (hypertension) Priority: Secondary Status: Chronic Qualifiers: Hypertension type: essential hypertension Qualified Code(s): I10 - Essential (primary) hypertension (5) COPD (chronic obstructive pulmonary disease) Priority: Secondary Status: Chronic Qualifiers: COPD type: emphysema Emphysema type: panlobular Qualified Code(s): J43.1 - Panlobular emphysema - Hospital Course Hospital course: Ms. Chambers is a 58 year old female - Time Spent with Patient Total time spent providing and/or coordinating discharge services: - Discharge Medications Prescriptions: OxyCODONE/APAP 5/325 [Percocet 5/325 MG] 1 each PO Q6HR PRN 4 Days #16 tablet PRN Reason: Postoperative pain Home Medications: Lisinopril [Zestril] 40 mg PO DAILY 03/05/18 [History] Tiotropium Br/Olodaterol HCl [Stiolto Respimat Inhal [place]] 2 puff IH DAILY 03/05/18 [History] amLODIPine [Norvasc] 5 mg PO DAILY 03/05/18 [History] Albuterol Sulfate [Proair Hfa] 1 puff IH QID 08/01/18 [History] Aspirin [Ecotrin] 325 mg PO DAILY 08/01/18 [History] Atorvastatin [Lipitor] 40 mg PO HS 08/01/18 [History] Ipratropium/Albuterol Neb [Duoneb] 3 ml IH Q6HR 08/01/18 [History] OxyCODONE/APAP 5/325 [Percocet 5/325 MG] 1 each PO Q6HR PRN 4 Days #16 tablet 08/02/18 [Rx] Allergies/Adverse Reactions: Allergy/AdvReac Type Severity Reaction Status Date / Time No Known Allergies Allergy Verified 01/12/18 17:29 Date of admission: 08/01/18 17:44 Primary care physician: Deep Barber MD Procedure(s) Performed: Left carotid endarterectomy Discharging clinician: Riley Velez Anticipated date of discharge: 08/02/18 Exam Vital Signs, Last 4 Hours Temp Pulse Resp BP Pulse Ox 08/02/18 04:01 97.6 F 78 19 145/71 08/02/18 03:10 16 96 General: Present: Conversant, No Apparent Distress HEENT: Present: Pupils equal Cardiac: Present: Reg Rate and Rhythm Lungs: Present: Normal Breath Sounds Neuro: Present: Alert and responsive, No focal deficits noted, Motor nerves grossly intact, Sensory nerves grossly intact Abdomen: Present: Soft Vascular: Present: Normal capillary refill. Absent: Cyanosis, Edema - Patient Status Disposition: Home, Self-Care Condition: Good Functional capacity at discharge: independent ambulation Overall status at discharge: patient is back to baseline - Discharge Instructions Follow Up With: Deep Barber MD [Primary Care Provider] - Additional Instructions: May remove bandage and shower on 08/03/18. Wash wound gently and pat to dry. No driving for [address] Velez at [phone] with questions or concerns. - Diet and Activity Activity: increase activity as tolerated Diet: low fat, low cholesterol
[2018-08-02] MEDS ORDERED: amLODIPine 5 MG TABLET PO SCH (09:00)
[2018-08-02] MEDS ORDERED: (Tiotropium Br/Olodaterol Hcl [Stiolto Respimat Inhal IH SCH (09:00)
[2018-08-02] MEDS ORDERED: Aspirin Enteric Coated 325 MG Tablet PO SCH (09:00)
[2018-08-02] MEDS ORDERED: Lisinopril 20 MG TABLET PO SCH (09:00)
[2018-08-02 10:12] VITALS: BP 165/86
== END 2018-08-02 10:19 | disposition home or self-care (01) | DRG 38 ==
LOC: SAMDAY 10:28 → 2NNU 17:44
PROVIDERS: ADMIT Surgery; ATTEND Surgery

== ENCOUNTER 2019-09-11 16:29 | Observation (INO) ==
[2019-09-11] MEDS ORDERED: Naloxone 0.4 MG/ML INJ IVP PRN (19:56)
[2019-09-11] MEDS ORDERED: Acetaminophen 325 MG TABLET PO PRN (20:56)
[2019-09-12] MEDS ORDERED: *HR* Heparin 5,000 UNIT/ML VIAL SQ SCH (06:00)
[2019-09-12 07:17] LABS: Hematocrit 42.4 % (35.3-44.9); Hemoglobin 14.2 g/dL (11.5-15.4); Mean Corpuscular HGB Conc 33.5 g/dL (31.6-35.5); Mean Corpuscular Hemoglobin 28.5 pg (28.0-33.3); Platelet Count 149 K/mcL (140-400); Red Blood Count 4.99 M/mcL (3.82-4.97); Red Cell Distribution Width 13.6 % (11.5-14.5); White Blood Count 4.8 K/mcL (4.3-11.1)
[2019-09-12 07:23] LABS: INR 1.1; Prothrombin Time 12.2 Seconds (9.4-12.1)
[2019-09-12 07:34] LABS: Calcium 9.3 mg/dL (8.6-10.3); Potassium 3.7 mEq/L (3.5-5.1)
[2019-09-12] MEDS ORDERED: carvediloL 6.25 MG TABLET PO SCH (08:00)
[2019-09-12] MEDS ORDERED: amLODIPine 5 MG TABLET PO SCH (09:00)
[2019-09-12] MEDS ORDERED: Aspirin 325 MG TABLET PO SCH (09:00)
[2019-09-12] MEDS ORDERED: Lisinopril 20 MG TABLET PO SCH (09:00)
[2019-09-12] MEDS ORDERED: Budesonide/Formoterol 80/4.5 1 PUFF INH IH SCH (10:00)
[2019-09-12 16:27] VITALS: BP 159/74
== END 2019-09-12 17:51 | disposition home or self-care (01) ==
LOC: 3BNU → SUATTDRO 18:24
PROVIDERS: ADMIT Internal Medicine; ATTEND Student in an Organized Health Care Education/Training Program